=== PATIENT | male | born 1990 | race Caucasian/White ===

== ENCOUNTER 2020-12-14 22:10 | Inpatient (IN) | payer OTHER ==
[2020-12-14 23:00] LABS: Basophils % 0.8 % (0-1.3); Hematocrit 27.7 % (39.6-49.0); Lymphocytes % 9.2 % (15.3-44.8); MPV 9.5 fL (7.6-11.3); RBC Red Blood Cell Count 3.51 M/uL (4.33-5.43)
[2020-12-14 23:20] LABS: ALT/SGPT 47 U/L (12-78); AST/SGOT 43 U/L (15-37); Albumin 2.8 g/dL (3.4-5.0); Alkaline Phosphatase 98 U/L (45-117); BUN Blood Urea Nitrogen 5 mg/dL (7-18); Bicarbonate 40 mmol/L (21-32); Bilirubin Direct 0.2 mg/dL (0-0.2); Bilirubin Total 0.4 mg/dL (0.2-1.0); Glucose Level 147 mg/dL (74-106); Magnesium 2.3 mg/dL (1.8-2.4); NT PRO-BNP 207 pg/mL (<125); Potassium 3.4 mmol/L (3.5-5.1); Protein, Total 7.9 g/dL (6.4-8.2); Sodium Level 140 mmol/L (136-145); Troponin (Emerg Dept Use Only) < 0.02 ng/mL (0.0-0.045)
[2020-12-14] MEDS ORDERED: NA CHLORIDE 0.9% 1,000 ML ONE (23:27)
[2020-12-14] MEDS ORDERED: ONDANSETRON 4 MG/2 ML VIAL ONE (23:27)
[2020-12-14] MEDS ORDERED: HYDROMORPHONE HCL 1 MG/ML INJ ONE (23:27)
[2020-12-14 23:33] LABS: Protime INR 1.24
[2020-12-15 00:14] LABS: Blood Morphology Comment NOT SEEN (NOT SEEN); Platelet Estimate ADEQ
[2020-12-15] MEDS ORDERED: LORazepam 2 MG/ML VIAL ONE (00:23)
--- NOTE | 2020-12-15 02:38 | ER ---
Nurse's Notes [facility] Name: Ravindra Holman Age: 30 yrs Sex: Male : 1990 Arrival Date: 12/14/2020 Time: 22:11 Bed 2 Private MD: Diagnosis: Hemoptysis. Pneumonia. Anemia. Morbid Obesity Presentation: 12/14 22:12 Chief complaint: EMS states: Mother reported she noticed bloody sputum in trace tubing ea since yesterday and has increased in the past 12 hours. Pt vented with own portable vent, sating 100%, felton to BSD. 20 G to RAC established per EMS. Coronavirus screen: At this time, the client does not indicate any symptoms associated with coronavirus-19. Ebola Screen: No symptoms or risks identified at this time. Initial Sepsis Screen: Does the patient meet any 2 criteria? Yes Does the patient have a suspected source of infection? No. Patient's initial sepsis screen is negative. Risk Assessment: Do you want to hurt yourself or someone else? Patient reports no desire to harm self or others. Onset of symptoms was December 14, 2020. 22:12 Method Of Arrival: EMS: [facility] ea 22:12 Acuity: PAM 2 bb Historical: - Allergies: 22:22 Sulfa (Sulfonamide Antibiotics); ea 22:30 No Known Allergies; bb - Home Meds: 22:30 pantoprazole 40 mg oral TbEC 1 tab once daily [Active]; Seroquel Oral [Active]; bb Tradjenta 5 mg oral tab 1 tab once daily [Active]; ipratropium-albuterol 0.5 mg-3 mg(2.5 mg base)/3 mL Inhl nebu every 6 hours [Active]; cetirizine 10 mg oral tab 1 tab once daily [Active]; benzonatate 100 mg oral cap 1 cap 3 times per day [Active]; Singulair 10 mg Oral tab 1 tab once daily [Active]; Melatonin Oral [Active]; doxepin 10 mg Oral cap 1 cap nightly [Active]; spironolactone 25 mg Oral tab 1 tab once daily [Active]; clonazepam 0.5 mg Oral tab 1 tab 3 times per day [Active]; Pulmicort 0.5 mg/2 mL Inhl nbsp 2 mL 2 times per day [Active]; Brovana 15 mcg/2 mL inhalation nebu 2 mL 2 times per day [Active]; amlodipine 5 mg tab 1 tab once daily [Active]; sertraline 100 mg oral tab 1 tab once daily [Active]; ondansetron HCl 4 mg Oral tab 1 tabs every 6 hours [Active]; furosemide 40 mg Oral tab 1 tab 2 times per day [Active]; Lyrica 75 mg Oral [Active]; methocarbamol 750 mg Oral tab 1 tab every 8 hours [Active]; Miralax 0.125 mg Oral twice a day [Active]; - Immunization history:: Adult Immunizations up to date. - Social history:: Smoking status: Patient denies any tobacco usage or history of. Screenin:20 Abuse screen: Denies threats or abuse. Nutritional screening: No deficits noted. ea Tuberculosis screening: No symptoms or risk factors identified. Fall Risk None identified. Assessment: 22:22 General: Appears uncomfortable, Behavior is appropriate for age. Pain: Complains of ea pain in buttocks. Neuro: Level of Consciousness is awake, alert, obeys commands, Oriented to person, place, time. Cardiovascular: Patient's skin is warm and dry. Respiratory: Ventilator assessment: Pt on portable vent from home, vented through trache. Respiratory: pink tinged sputum noted in tubing Ventilator assessment:. Derm: Skin is pink, warm \T\ dry. 12/15 00:24 Respiratory: Pt has a trache and uses a home vent, pt tolerating well. ea 02:20 Reassessment: Patient appears in no apparent distress at this time. Patient and/or ad5 family updated on plan of care and expected duration. Pain level reassessed. Patient is alert, oriented x 3, equal unlabored respirations, skin warm/dry/pink. 03:00 Reassessment: Patient and/or family updated on plan of care and expected duration. Pain ea level reassessed. Patient is alert, oriented x 3, equal unlabored respirations, skin warm/dry/pink. Hospitalist at bedside updating pt and family on plan of care. 03:30 Reassessment: Patient and/or family updated on plan of care and expected duration. Pain ea level reassessed. Patient is alert, oriented x 3, equal unlabored respirations, skin warm/dry/pink. Pt admitted to ED ICU, report given to receiving nurse. Pt left ED via stretcher per nurse and RT. Pt tolerating well. Vital Signs: 12/14 22:12 BP 150 / 68; Pulse 65; Resp 20; Temp 98.2; Pulse Ox 100% ; Weight 153 kg; Height 5 ft. ea 8 in. (172.72 cm); 23:00 BP 144 / 77; Pulse 61; Resp 24 S; Pulse Ox 100% on ETT vent; ea 12/15 00:00 BP 145 / 66; Pulse 55; Resp 20 S; Pulse Ox 100% on ETT vent; ea 00:53 BP 149 / 89; Pulse 89; Resp 20; Pulse Ox 100% on ETT vent; ea 01:30 BP 151 / 77; Pulse 85; Resp 19; Pulse Ox 100% ; ea 02:20 BP 149 / 58; Pulse 74; Resp 18 S; Pulse Ox 100% on ETT vent; ad5 12/14 22:12 Body Mass Index 51.29 (153.00 kg, 172.72 cm) ea ED Course: 12/14 22:11 Patient arrived in ED. bp1 22:12 Daniela Rebolledo, TENZIN is Primary Nurse. ea 22:20 Triage completed. ea 22:20 Arm band placed on right wrist. Patient placed in an exam room, on a stretcher, on ea cardiac exercise specialist, on pulse oximetry. 22:21 Patient has correct armband on for positive identification. Bed in low position. Call ea light in reach. Side rails up X2. 22:45 Deep Chavira MD is Attending Physician. pkl 22:55 Chest Single View XRAY In Process Unspecified. EDMS 23:34 Notified ED physician of a critical lab result(s). D-Dimer of [id number] Dr Chavira notified. bb 12/15 00:05 CT Chest For PE Angio Sent. ea 00:54 CT Chest For PE Angio In Process Unspecified. EDMS 01:43 initiated a transfer with Ashanti Tinoco from [facility]. mw2 02:09 all [facility] campuses denied due to capacity. mw2 02:37 Claude Bravo MD is Hospitalizing Provider. pkl 03:11 No provider procedures requiring assistance completed. Patient admitted, IV remains in ea place. Administered Medications: 12/14 23:21 Drug: Zofran (Ondansetron) 4 mg Route: IVP; Site: right antecubital; ea 12/15 00:18 Follow up: Response: No adverse reaction ea 12/14 23:22 Drug: NS 0.9% 1000 ml Route: IV; Rate: 100 ml/hr; Site: right antecubital; ea 12/15 03:13 Follow up: IV Status: Infusion continued upon admission ea 12/14 23:22 Drug: Dilaudid (HYDROmorphone) 1 mg Route: IVP; Site: right antecubital; ea 12/15 00:18 Follow up: Response: No adverse reaction ea 00:07 Drug: Ativan (LORazepam) 1 mg Route: IVP; Site: right antecubital; ea 03:13 Follow up: Response: No adverse reaction ea Outcome: 02:38 Decision to Hospitalize by Provider. pkl 03:11 Instructed on the need for admit, Demonstrated understanding of instructions. ea 03:33 Admitted to ICU accompanied by nurse, accompanied by tech, room ICU 10 , with oxygen, ea on monitor, with chart, Report called to Receiving nurse in ICU 03:33 Condition: stable 03:34 Patient left the ED. ea Signatures: Dispatcher [employer] EDMS Deep Chavira MD MD pkl Ballard, Brenda RN Daniela Andrews RN RN Terry Rodriguez mw2 Ellen Camp Andrea ad5 Corrections: (The following items were deleted from the chart) 12/14 22:31 22:12 Acuity: PAM 3 ea sharon 12/15 01:58 01:43 initiated a transfer with Ashanti from [facility] mw2 mw2
--- NOTE | 2020-12-15 02:38 | EDPHYS ---
Physician Documentation [facility] Name: Ravindra Holman Age: 30 yrs Sex: Male : 1990 Arrival Date: 12/14/2020 Time: 22:11 Bed 2 Private MD: ED Physician Deep Chavira HPI: 12/14 23:49 This 30 yrs old Male presents to ER via EMS with complaints of bloody sputum. pkl 23:49 The patient has shortness of breath at rest. Onset: The symptoms/episode began/occurred pkl yesterday. Associated signs and symptoms: Pertinent positives: hemoptysis, bloody sputum. H/o Covid 19 in Jun 2020. Was admitted to [facility] for about 1 month and then transferred to [facility] for rehab. Discharged from [facility] 1 week ago. Historical: - Allergies: 22:22 Sulfa (Sulfonamide Antibiotics); ea 22:30 No Known Allergies; bb - Home Meds: 22:30 pantoprazole 40 mg oral TbEC 1 tab once daily [Active]; Seroquel Oral [Active]; bb Tradjenta 5 mg oral tab 1 tab once daily [Active]; ipratropium-albuterol 0.5 mg-3 mg(2.5 mg base)/3 mL Inhl nebu every 6 hours [Active]; cetirizine 10 mg oral tab 1 tab once daily [Active]; benzonatate 100 mg oral cap 1 cap 3 times per day [Active]; Singulair 10 mg Oral tab 1 tab once daily [Active]; Melatonin Oral [Active]; doxepin 10 mg Oral cap 1 cap nightly [Active]; spironolactone 25 mg Oral tab 1 tab once daily [Active]; clonazepam 0.5 mg Oral tab 1 tab 3 times per day [Active]; Pulmicort 0.5 mg/2 mL Inhl nbsp 2 mL 2 times per day [Active]; Brovana 15 mcg/2 mL inhalation nebu 2 mL 2 times per day [Active]; amlodipine 5 mg tab 1 tab once daily [Active]; sertraline 100 mg oral tab 1 tab once daily [Active]; ondansetron HCl 4 mg Oral tab 1 tabs every 6 hours [Active]; furosemide 40 mg Oral tab 1 tab 2 times per day [Active]; Lyrica 75 mg Oral [Active]; methocarbamol 750 mg Oral tab 1 tab every 8 hours [Active]; Miralax 0.125 mg Oral twice a day [Active]; - Immunization history:: Adult Immunizations up to date. - Social history:: Smoking status: Patient denies any tobacco usage or history of. ROS: 23:49 Eyes: Negative for injury, pain, redness, and discharge, ENT: Negative for injury, pkl pain, and discharge, Neck: Negative for injury, pain, and swelling, Cardiovascular: Negative for chest pain, palpitations, and edema. 23:49 Respiratory: Positive for shortness of breath, at rest. 23:49 Abdomen/GI: Negative for abdominal pain, nausea, vomiting, and diarrhea. 23:49 Back: Negative for acute changes. 23:49 : Negative for urinary symptoms. 23:49 MS/extremity: Negative for acute changes. 23:49 Skin: Negative for rash. 23:49 Neuro: Negative for altered mental status, loss of consciousness. Exam: 23:49 Head/Face: Normocephalic, atraumatic. Eyes: Pupils equal round and reactive to light, pkl extra-ocular motions intact. Lids and lashes normal. Conjunctiva and sclera are non-icteric and not injected. Cornea within normal limits. Periorbital areas with no swelling, redness, or edema. ENT: Nares patent. No nasal discharge, no septal abnormalities noted. Tympanic membranes are normal and external auditory canals are clear. Oropharynx with no redness, swelling, or masses, exudates, or evidence of obstruction, uvula midline. Mucous membranes moist. Neck: Trachea midline, no thyromegaly or masses palpated, and no cervical lymphadenopathy. Supple, full range of motion without nuchal rigidity, or vertebral point tenderness. No Meningismus. Chest/axilla: Normal chest wall appearance and motion. Nontender with no deformity. No lesions are appreciated. Cardiovascular: Regular rate and rhythm with a normal S1 and S2. No gallops, murmurs, or rubs. Normal PMI, no JVD. No pulse deficits. 23:49 Respiratory: the patient does not display signs of respiratory distress, Respirations: normal, Breath sounds: rales, that are mild, are scattered. 23:49 Abdomen/GI: Bowel sounds: normal, Palpation: abdomen is soft and non-tender, in all quadrants. 23:49 Back: Exam negative for acute changes. 23:49 : Exam negative for acute changes. 23:49 Musculoskeletal/extremity: Exam is negative for acute changes. 23:49 Skin: Exam negative for rash. 23:49 Neuro: Orientation: is normal, Mentation: is normal, Cranial nerves: grossly normal, Motor: is normal. Vital Signs: 22:12 BP 150 / 68; Pulse 65; Resp 20; Temp 98.2; Pulse Ox 100% ; Weight 153 kg; Height 5 ft. ea 8 in. (172.72 cm); 23:00 BP 144 / 77; Pulse 61; Resp 24 S; Pulse Ox 100% on ETT vent; ea 12/15 00:00 BP 145 / 66; Pulse 55; Resp 20 S; Pulse Ox 100% on ETT vent; ea 00:53 BP 149 / 89; Pulse 89; Resp 20; Pulse Ox 100% on ETT vent; ea 01:30 BP 151 / 77; Pulse 85; Resp 19; Pulse Ox 100% ; ea 02:20 BP 149 / 58; Pulse 74; Resp 18 S; Pulse Ox 100% on ETT vent; ad5 12/14 22:12 Body Mass Index 51.29 (153.00 kg, 172.72 cm) ea MDM: 02:35 Data reviewed: vital signs, nurses notes, lab test result(s), radiologic studies, CT pkl scan, plain films. ED course: Talked to Dominic Marie. Admit to Dr. Claude Bravo. 02:38 Patient medically screened. pkl 12/14 22:38 Order name: BMP; Complete Time: 23:46 ea 12/14 22:38 Order name: CBC with Diff; Complete Time: 01:33 ea 12/14 22:57 Order name: LFT's pkl 12/14 22:57 Order name: Magnesium pkl 12/14 22:57 Order name: PT-INR; Complete Time: 23:46 pkl 12/14 22:57 Order name: Blood Culture Adult (2) pkl 12/14 22:57 Order name: Lactate; Complete Time: 23:46 pkl 12/14 22:57 Order name: D-Dimer; Complete Time: 23:46 pkl 12/14 23:01 Order name: Manual Differential; Complete Time: 01:33 EDMS 12/14 22:36 Order name: Chest Single View XRAY 12/14 22:57 Order name: EKG; Complete Time: 22:58 pkl 12/14 22:57 Order name: Cardiac monitoring; Complete Time: 00:58 pkl 12/14 22:57 Order name: EKG - Nurse/Tech; Complete Time: 00:58 pkl 12/14 22:57 Order name: IV Saline Lock; Complete Time: 23:22 pkl 12/14 23:02 Order name: Liver (Hepatic) Function; Complete Time: 23:46 EDMS 12/14 23:02 Order name: Troponin (Emerg Dept Use Only); Complete Time: 23:46 EDMS 12/14 23:02 Order name: NT PRO-BNP; Complete Time: 23:46 EDMS 12/14 23:02 Order name: Magnesium; Complete Time: 23:46 EDMS 12/14 23:48 Order name: CT Chest For PE Angio [facility] 12/15 00:40 Order name: SARS-COV-2 RT PCR; Complete Time: 01:33 EDMS 12/14 22:57 Order name: Labs collected and sent; Complete Time: 23:22 pkl 12/14 22:57 Order name: O2 Per Protocol; Complete Time: 23:23 pk 12/14 22:57 Order name: O2 Sat Monitoring; Complete Time: 23:23 [facility] 12/15 03:17 Order name: Urine Dipstick-Ancillary (obtain specimen) la1 Administered Medications: 12/14 23:21 Drug: Zofran (Ondansetron) 4 mg Route: IVP; Site: right antecubital; ea 12/15 00:18 Follow up: Response: No adverse reaction 12/14 23:22 Drug: NS 0.9% 1000 ml Route: IV; Rate: 100 ml/hr; Site: right antecubital; ea 12/15 03:13 Follow up: IV Status: Infusion continued upon admission 12/14 23:22 Drug: Dilaudid (HYDROmorphone) 1 mg Route: IVP; Site: right antecubital; ea 12/15 00:18 Follow up: Response: No adverse reaction ea 00:07 Drug: Ativan (LORazepam) 1 mg Route: IVP; Site: right antecubital; ea 03:13 Follow up: Response: No adverse reaction ea Disposition: 12/15/20 02:38 Hospitalization ordered by Claude Bravo for Inpatient Admission. Preliminary diagnosis is Hemoptysis. Pneumonia. Anemia. Morbid Obesity. - Bed requested for Intensive Care Unit. - Status is Inpatient Admission. ea - Condition is Stable. - Problem is new. - Symptoms are unchanged. Signatures: Dispatcher [employer] EDVA Amna Nice RN RN mw Lam, Pin, MD MD pkl Ballard, Brenda, RN RN bb Attema, Lee, INDUSTRIAL ENG-C INDUSTRIAL ENG-Cla1 Daniela Rebolledo RN RN ea Westbrook, MyKena mw2 Corrections: (The following items were deleted from the chart) 12/14 23:02 22:58 Liver (Hepatic) Function ordered. EDVA EDMS 23:02 22:58 Magnesium ordered. EDVA EDMS 23:02 22:58 PROBNP+C.LAB.BRZ ordered. EDVA EDMS 23:02 22:58 TROPONIN (EMERG DEPT USE ONLY)+C.LAB.BRZ ordered. EDVA EDMS 23:21 22:54 Arterial Blood Gas+RC.LAB.BRZ ordered. EDVA EDMS 23:47 23:29 CORONAVIRUS+MR.LAB.BRZ ordered. EDVA EDVA 12/15 02:59 02:38 Hospitalization Ordered by Claude Bravo MD for Inpatient Admission. Preliminary diagnosis is Hemoptysis. Pneumonia. Anemia. Morbid Obesity. Bed requested for Telemetry/MedSurg (Inpatient). Status is Inpatient Admission. Condition is Stable. Problem is new. Symptoms are unchanged. pkl 03:06 02:59 12/15/2020 02:38 Hospitalization Ordered by Claude Bravo MD for Inpatient Admission. Preliminary diagnosis is Hemoptysis. Pneumonia. Anemia. Morbid Obesity. Bed requested for [facility] ER HOLD. Status is Inpatient Admission. Condition is Stable. Problem is new. Symptoms are unchanged. mw 03:20 03:06 12/15/2020 02:38 Hospitalization Ordered by Claude Bravo MD for Inpatient mw2 Admission. Preliminary diagnosis is Hemoptysis. Pneumonia. Anemia. Morbid Obesity. Bed requested for Intensive Care Unit. Status is Inpatient Admission. Condition is Stable. Problem is new. Symptoms are unchanged. mw 03:34 03:20 12/15/2020 02:38 Hospitalization Ordered by Claude Bravo MD for Inpatient ea Admission. Preliminary diagnosis is Hemoptysis. Pneumonia. Anemia. Morbid Obesity. Bed requested for Intensive Care Unit. Status is Inpatient Admission. Condition is Stable. Problem is new. Symptoms are unchanged. mw2
--- NOTE | 2020-12-15 03:31 | P.HP ---
Certification for Inpatient Patient admitted to: Inpatient With expected LOS: >2 Midnights Patient will require the following post-hospital care: None Practitioner: I am a practitioner with admitting privileges, knowledge of patient current condition, hospital course, and medical plan of care. Services: Services provided to patient in accordance with Admission requirements found in Title 42 Section 412.3 of the Code of Federal Regulations <Dominic Marie - Last Filed: 12/15/20 03:22> Patient History Date of Service: 12/15/20 Primary Care Provider: none Reason for admission: Hemoptysis, pneumonia, anemia History of Present Illness: 30-year-old male with morbid obesity, history of diabetes/hypertension and severe COVID infection requiring trach/home vent presents emergency department for hemoptysis. Patient's mother at bedside reports that he was hospitalized on July 03 to [address] [facility] and then transferred to [facility] where he was discharged MondayDecember 08. Mother reports that patient had his trach change approximately 3 weeks ago, they attempted to change the trach with a size 6 reportedly with great difficulty and ended up going down in size to a size 4. Mother reports ever since this is happened patient has had steady slow hemoptysis/blood in his suction/vent tubing. Mother reports that patient is to discharge with hospital bed and home health but this is still not been arranged after multiple attempts and reaching out to [facility] and patient's insurance company. Patient was evaluated in the emergency department, labs significant for hemoglobin 8.6 hematocrit 27.7 MCV 70.9 white blood cell count 10.7 D-dimer 932 potassium 3.4 glucose [address] PE protocol obtained which demonstrates no evidence of large proximal pulmonary embolus with suboptimal bolus limiting evaluation for brain emboli common multi focal atelectasis or consolidations present predominantly within the right lower lobe mild bilateral ground-glass opacities may represent edema versus infiltration, mediastinal and bilateral hilar lymph nodes increase in number and mildly increase in size with largest burden of nodes in the superior mediastinum given patient's age of likely to be reactive in nature. ED provider wishes to admit for further evaluation and management of hemoptysis/bleeding from trach/possible early pneumonia. When I saw the patient in the ER he was awake, alert, oriented x3, patient's mother at bedside to assist with history. Patient in no distress at this time, does not appear septic. Will admit for further evaluation and management. - Past Medical/Surgical History -: Diabetes mellitus type 2 -: Hypertension -: Morbid obesity -: Severe COVID requiring trach/home vent -: Trach Psychosocial/ Personal History: Currently lives at home with his mother - Family History Family History: Reviewed- Non-Contributory - Social History Smoking Status: Never smoker Alcohol use: No CD- Drugs: No Caffeine use: No Place of Residence: Home <Dominic Marie - Last Filed: 12/15/20 03:22> Date of Service: 12/15/20 <Claude Bravo - Last Filed: 12/15/20 09:47> Review of Systems 10-point ROS is otherwise unremarkable Respiratory: Cough, Shortness of Breath, Hemoptysis, As per HPI <Dominic Marie - Last Filed: 12/15/20 03:22> Physical Examination - Physical Exam General: Alert, Oriented x3, Obese HEENT: Atraumatic, Normocephalic, PERRLA, Mucous membr. moist/pink, Other (Trach in place with small amount of bleeding noted) Neck: Supple Respiratory: Diminished (Bilaterally) Cardiovascular: Edema (1+ pitting edema bilaterally to lower extremities) Capillary refill: <2 Seconds Gastrointestinal: Normal bowel sounds Musculoskeletal: No contractures, No erythema, No tenderness Integumentary: Pressure ulcer (unstagable decubitus pressure ulcer, granulation tissue present without any purulent drainage.) Neurological: Normal speech, Normal strength at 5/5 x4 extr, Normal tone, Sensation intact - Studies Laboratory Data (last 24 hrs) 12/14/20 23:16: PT 14.3 H, INR 1.24 12/14/20 22:57: Magnesium Cancelled, Total Bilirubin Cancelled, AST Cancelled, ALT Cancelled, Alkaline Phosphatase Cancelled 12/14/20 22:47: WBC 10.70, Hgb 8.6 L, Hct 27.7 L, Plt Count 369 12/14/20 22:47: Sodium 140, Potassium 3.4 L, BUN 5 L, Creatinine 0.57, Glucose 147 H, Magnesium 2.3, Total Bilirubin 0.4, AST 43 H, ALT 47, Alkaline Phosphatase 98 <Dominic Marie - Last Filed: 12/15/20 03:22> - Studies Laboratory Data (last 24 hrs) 12/14/20 23:16: PT 14.3 H, INR 1.24 12/14/20 22:57: Magnesium Cancelled, Total Bilirubin Cancelled, AST Cancelled, ALT Cancelled, Alkaline Phosphatase Cancelled 12/14/20 22:47: WBC 10.70, Hgb 8.6 L, Hct 27.7 L, Plt Count 369 12/14/20 22:47: Sodium 140, Potassium 3.4 L, BUN 5 L, Creatinine 0.57, Glucose 147 H, Magnesium 2.3, Total Bilirubin 0.4, AST 43 H, ALT 47, Alkaline Phosphatase 98 <Claude Bravo - Last Filed: 12/15/20 09:47> Assessment and Plan - Plan Assessment Microcytic anemia secondary to hemoptysis/bleeding from tracheostomy site complicated with possible right lower lobe pneumonia and chronic respiratory failure requiring tracheostomy/home ventilator S/P severe COVID pneumonia Sacral Decubitus ulceration Diabetes mellitus type 2 Hypertension Morbid obesity, debility, weakness Plan Microcytic anemia secondary to hemoptysis/bleeding from tracheostomy site complicated with possible right lower lobe pneumonia and chronic respiratory failure requiring tracheostomy/home ventilator S/P severe COVID pneumonia: Will consult ENT, pulmonology. Blood is/sputum cultures obtained, continue with Rocephin/Zithromax, will obtain pro calcitonin/CRP level. White blood cell count borderline 10.7. Patient with steady slow blood present in ventilator tubing/suction tubing over the course of the last 3 weeks after trach was manipulated and multiple attempts were made to exchange trach which ended up requiring a smaller size, mother reports bleeding ever since this incident. Hemoglobin 8.6, will monitor daily labs. Transfuse for hemoglobin less than 8 with active bleeding. Patient hemodynamically stable, does not appear septic at this time. Will continue with SCDs for DVT prophylaxis as patient is with active bleeding. Appreciate further input from pulmonology, ENT. Sacral Decubitus ulceration: Wound appears to be healing well, will place wound healing consult for additional assistance in management. Diabetes mellitus type 2: A.c. HS Accu-Cheks insulin therapy. ADA diet. Hypertension: Obtain and continue home medications. Morbid obesity, debility, weakness: Patient morbidly obese, very weak. Patient was supposed to be discharged with home health/hospital bed etc from [facility] in [place], patient was discharged on December 08 and patient has still not received these accommodation/resources. Will have social sciences department chair get with patient's insurance/rehab facility to determine what the hold up his and help him obtain additional assistance. Discharge Plan: Home Plan to discharge in: 48 Hours - Advance Directives Does patient have a Living Will: No Does patient have a Durable POA for Healthcare: No - Code Status/Comfort Care Code Status Assessed: Yes (Full code) Critical Care: No Time Spent Managing Pts Care (In Minutes): 55 <Dominic Marie - Last Filed: 12/15/20 03:22> - Plan Patient seen / evaluated this morning. No significant change since admission a few hours prior. Mother and patient report ongoing blood clots and difficulty breathing due to obstruction at trach site. Feel these blood clots are becoming larger in size. No overall change to amount of bleeding. Otherwise report no significant change in health. Deny h/o anemia prior to COVID infection. Pulm consulted given ongoing bleeding / hemoptysis / possible RLL pneumonia ENT consulted for further evaluation of tracheostomy site / bleeding <Claude Bravo - Last Filed: 12/15/20 09:47>
[2020-12-15] MEDS ORDERED: ACETAMINOPHEN 500 MG TAB PO PRN (05:15)
[2020-12-15] MEDS ORDERED: ONDANSETRON 4 MG/2 ML VIAL IV PRN (05:15)
[2020-12-15] MEDS ORDERED: HYDROCODONE/APAP 10/325 TAB PO PRN (05:25)
[2020-12-15] MEDS ORDERED: MORPHINE 2 MG/ML SYR IV PRN (05:25)
[2020-12-15] MEDS: HYDROMORPHONE HCL 0.5 MG/0.5 ML INJ IV PRN ×4 (05:49→22:49)
[2020-12-15] MEDS ORDERED: HYDROMORPHONE HCL 0.5 MG/0.5 ML INJ ONE ×4 (06:03→23:08)
[2020-12-15 06:20] LABS: Absolute Lymphocytes (CBC) 1.2 K/uL (0.7-4.9); Basophils % 1.2 % (0-1.3); Lymphocytes % 12.1 % (15.3-44.8); MPV 9.7 fL (7.6-11.3); RBC Red Blood Cell Count 3.44 M/uL (4.33-5.43)
[2020-12-15 06:44] LABS: ALT/SGPT 39 U/L (12-78); AST/SGOT 35 U/L (15-37); Albumin 2.5 g/dL (3.4-5.0); Alkaline Phosphatase 84 U/L (45-117); BUN Blood Urea Nitrogen 5 mg/dL (7-18); Bicarbonate 39 mmol/L (21-32); Bilirubin Total 0.4 mg/dL (0.2-1.0); Ferritin 130.4 ng/mL (26-388); Glucose Level 103 mg/dL (74-106); Magnesium 2.1 mg/dL (1.8-2.4); Potassium 3.2 mmol/L (3.5-5.1); Protein, Total 6.8 g/dL (6.4-8.2); Sodium Level 140 mmol/L (136-145); Transferrin 192 mg/dL (200-360)
--- NOTE | 2020-12-15 07:20 | RAD REPORT ---
EXAM DESCRIPTION: Manfred Single View12/14/2020 10:55 pm CLINICAL HISTORY: Congestion COMPARISON: none FINDINGS: Mild right lower lobe opacity. Left lung appears clear infiltrate. Heart is mildly enlarged. Tracheostomy tube in place IMPRESSION: Mild right lower lobe opacity probably pneumonia. This should be followed until it is cl ear to help exclude post obstructive process/ underlying mass
[2020-12-15] MEDS: INSULIN -REGULAR HUMAN 50 UNIT/0.5 ML ML SQ SCH ×4 (07:30→21:00)
[2020-12-15] MEDS ORDERED: POTASSIUM CL SA 10 MEQ TAB PO ONE ×2 (07:31→09:29)
--- NOTE | 2020-12-15 07:49 | EKG ---
Test Date: 2020-12-14 Test Time: 23:56:15 Retail Salesman: ALBINA MEASUREMENT RESULTS: Intervals: Rate: 60 MD: 152 QRSD: 98 QT: 434 QTc: 434 [place]: P: 28 MD: 152 QRS: 40 T: 51 INTERPRETIVE STATEMENTS: Normal sinus rhythm Normal ECG No previous ECG available for comparison Electronically Signed On 12-15-20 07:48:53 CDT by Flex Ochoa
[2020-12-15 08:04] VITALS: BMI 51.2
--- NOTE | 2020-12-15 08:37 | P.CNS ---
Date of Consult: 12/15/20 Reason for Consult: Hemoptysis patient on a ventilator Primary Care Provider: none Chief Complaint: Hemoptysis History of Present Illness: Patient is 22 years of age with metabolic syndrome morbid obesity the deluna virus section had a trach done currently on a home ventilator patient's trach was downsized about 3 weeks ago since then has been having problems has had recurrent episodes of hemoptysis right now in the morning he appears to be in significant distress after suction no evidence of pulmonary embolus Allergies Sulfa (Sulfonamide Antibiotics) Allergy (Severe, Verified 12/15/20 05:15) Hives/Rash - Past Medical/Surgical History -: Diabetes mellitus type 2 -: Hypertension -: Morbid obesity -: Severe COVID requiring trach/home vent -: Trach Psychosocial/ Personal History: Currently lives at home with his mother - Social History Alcohol use: No CD- Drugs: No Caffeine use: No Place of Residence: Home Review of Systems is unable to be obtained Physical Examination Temp Pulse Resp BP Pulse Ox 97.1 F 93 H 17 90/71 95 12/15/20 07:00 12/15/20 07:00 12/15/20 07:00 12/15/20 07:00 12/15/20 07:00 General: Moderate distress Respiratory: Clear to auscultation bilaterally Cardiovascular: No edema, Normal S1 S2 Laboratory Data (last 24 hrs) 12/14/20 23:16: PT 14.3 H, INR 1.24 12/14/20 22:57: Magnesium Cancelled, Total Bilirubin Cancelled, AST Cancelled, ALT Cancelled, Alkaline Phosphatase Cancelled 12/14/20 22:47: WBC 10.70, Hgb 8.6 L, Hct 27.7 L, Plt Count 369 12/14/20 22:47: Sodium 140, Potassium 3.4 L, BUN 5 L, Creatinine 0.57, Glucose 147 H, Magnesium 2.3, Total Bilirubin 0.4, AST 43 H, ALT 47, Alkaline Phosphatase 98 - Problems (1) Hemoptysis Current Visit: Yes Status: Acute Plan: Patient is 30 years of age history of deluna virus pneumonia diagnosed in June has a home vent admitted with hemoptysis recent trach was downsized to size 4 he has been having problems since then this morning is in significant respiratory distress after suctioning by his mother is present at the bed side CT scan shows right lower lobe consolidation which I suspect is chronic there is no evidence of active sepsis vital signs stable oxygenation satisfactory no further episodes of hemoptysis patient has a mild microcytic anemia possible iron deficiency check iron levels chemistries reviewed mild hyponatremia recommend ENT evaluation trach collar ferritin level is normal TIBC is low probably has anemia of chronic disease patient is on multiple medications that niece to be renewed Dc Lasix
[2020-12-15] MEDS ORDERED: CEFTRIAXONE 1 GM/NS 50 ML 1 GM/50 ML BAG IV SCH (09:00)
[2020-12-15] MEDS ORDERED: AZITHROMYCIN IV 500 MG in NA CHLORIDE 0.9% 250 ML IVPB SCH (09:00)
[2020-12-15] MEDS ORDERED: CEFTRIAXONE/SWI 1gm 1 GM/10 ML SYR IV SCH (09:00)
[2020-12-15] MEDS ORDERED: CEFTRIAXONE/SWI 1gm 0 GM/0 ML SYR ONE (09:30)
[2020-12-15] MEDS ORDERED: HYDROCODONE/APAP 10/325 TAB ONE (10:27)
--- NOTE | 2020-12-15 10:53 | RAD REPORT ---
EXAM DESCRIPTION: CT - Chest For Pe Angio - 12/15/2020 6:21 am COMPARISON: None. CLINICAL HISTORY: Bloody sputum TECHNIQUE: CT images through the chest with IV contrast using the pulmonary embolus protocol. Multip lanar reformats. Automated exposure control was utilized on this examination as a dose lowering techn ique. FINDINGS: Pulmonary arteries and vascular: Suboptimal bolus. No filling defects. Heart and mediastinum: Heart size is normal. Mediastinal and bilateral hilar lymph nodes are increase d in number and measure up to 1.5 cm short axis (series 401 image 20). Thyroid gland: Visualized portions are normal. Lungs: Right perihilar and bilateral lower lobe atelectasis or consolidation are present. Mild bilate ral perihilar groundglass opacities are noted. Airways: No filling defects. A tracheostomy tube is in place. No bronchiectasis. Pleura: No pneumothorax. Small right pleural effusion. Subphrenic structures: Within normal limits. Musculoskeletal and soft tissues: Osseous demineralization is noted in the proximal humeri. IMPRESSION: 1. No evidence of large proximal pulmonary embolus. Suboptimal bolus limits evaluation f or branch emboli. 2. Multifocal atelectasis or consolidations are present, predominantly within the right lower lobe. M ild bilateral groundglass opacities may represent edema or infection. 3. Mediastinal and bilateral hilar lymph nodes are increased in number and mildly increased in size. The largest burden of nodes is in the superior right mediastinum. These are favored to be reactive gi marlin patient age, however a small right perihilar or hilar neoplasm is not excluded. Electronically signed by: Doyle Palacios MD 12/15/2020 1:11 AM CDT Due to temporary technical issues with the PACS/Fluency reporting system, reports are being signed by the in house radiologist without review as a courtesy to ensure prompt reporting. The interpreting r adiologist is fully responsible for the content of the report.
[2020-12-15] MEDS: BENZONATATE 100 MG CAP PO SCH ×2 (13:42→20:22)
[2020-12-15] MEDS: clonazePAM 0.5 MG TAB PO SCH ×2 (13:42→20:22)
--- NOTE | 2020-12-15 15:03 | CON ---
Date of Consultation: 12/15/2020 Reason For Consult: Hemoptysis - suspected origin - tracheostomy site. Primary Care Provider: None. Chief Complaint: Hemoptysis. 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 The patient and mother report that approximately 3 weeks ago the patient had tracheostomy change from #6 cuff tube to the same size and it was unsuccessful after 4 attempts at in serting the trach tube. The patient also complained that it was very bloody during the procedure. T hus the respiratory therapist instead placed a smaller cuff tube to a Shiley trach size 4 DCT. The c uff was inflated and the patient was able to breath adequately through the tracheostomy tube but he c ontinued to cough blood clots through the tube. He states that while the initial gonzález bleeding epis ode has improved, he still coughing up blood clots through the tracheostomy tube opening. He reports that breathing is adequate through the smaller tube and O2 saturation have been in the range of 95% to 98% on trach collar. Currently he denies neck pain, swelling, or significant shortness of breath. No other ENT complaints today. Past Medical History: Type 2 diabetes mellitus, morbid obesity, hypertension, severe COVID requiring tracheostomy tube and home ventilation. Social History: Denies alcohol, drug use or tobacco. Review of Systems: Ears: No complaints today. Denies otalgia, otorrhea, hearing loss. Nose: Denies nasal obstruction or rhinorrhea. Throat: Denies sore throat or dry mouth. Neck: Positive for hemoptysis through the tracheostomy tube opening but denies neck pain, swelling, or erythema where the tracheostomy has been placed. Physical Examination: Vital Signs: Currently stable. He is afebrile. Pulse is approximately 89%. Respiratory rate is 18. Blood pressure is 105/80 and pulse oxymetry is 98% on trach collar. General: Positive for mild anxiety but he is in no acute distress. He is sitting at the bed side an d he just finished his breakfast meal. He is actively coughing of sputum but no gonzález blood is seen. Eyes: PERRLA/EOMI. Ears: Bilateral external auditory canals patent. Tympanic membrane intact with no evidence of middl e ear effusion and no evidence of otorrhea. Nose: Bilateral moist nasal mucosa with normal turbinate size and no evidence of deviated septum. Oral cavity/oropharyngeal: Reveals midline uvula with type 2/3 Clemons palate and oral mucosa is mo ist with no erythema or edema visualized. Neck: Redundant soft tissue of the neck. He has an intact Shiley #[address]. No evidence of gonzález bleeding or blood clot visualized either in the tube or surrounding the flanges at the neck stomal opening. After obtaining verbal consent, a flexible fiberoptic laryngoscope was introduced through the tracheo stomy tube and advanced to the level of the yadira. With the exception of a small amount of old bloo d located on the posterior tracheal wall, there was no evidence of gonzález bleeding or blood clots. Th e patient had patent airway down to the level of the yadira and no evidence of trachitis or tracheoma lacia. The scope was advanced where the tracheostomy tube and he tolerated the procedure well. Hemo globin 12/14/2020 at 22:47 was 8.6, and according to the attending physician, this has dropped to faby roximately 8.3 or 8.4 this morning 12/15/2020. Hematocrit 27.7, MCV at 70.9, D-dimer 932. CTP protocol was negative for obvious pulmonary embolus a nd was unable to be evaluated for brain emboli. There was also evidence of right lower lobe opacity versus infiltration and bilateral hilar lymphadenopathy. Impression: 1.Hemoptysis. 2.Microcytic anemia. 3.Morbid obesity. Plan: Overall it appears that the bleeding has improved but it has not resolved. I would like to ob tain another hemoglobin and hematocrit but it appears that we will need to take him to the OR to asse ss the area at the tracheal stoma and possibly cauterized any areas of bleeding as necessary. I will also attempt to change him back #6 tracheostomy tube as he would breath much better through the larg er tube. This will be further evaluated in the operating room. Thank you Dr. Bravo for this most interesting patient. Further recommendations to follow. CRISTY/ORIANA Voice ID: [id number] Report ID: [id number]
[2020-12-15] MEDS ORDERED: LIDOCAINE 1% W/EPI 1:100,000 MDV 20 ML VIAL ONE (16:03)
[2020-12-15] MEDS ORDERED: EPINEPHRINE/PF 1 MG/ML AMP ONE (16:07)
[2020-12-15] MEDS ORDERED: propofoL 200 MG/20 ML VIAL IV ONE (16:56)
[2020-12-15] MEDS ORDERED: NA CHLORIDE 0.9% 1,000 ML ONE (16:57)
[2020-12-15] MEDS ORDERED: ONDANSETRON 4 MG/2 ML VIAL ONE (18:18)
[2020-12-15] MEDS ORDERED: BENZONATATE 100 MG CAP PO ONE (19:54)
[2020-12-15] MEDS ORDERED: ARFORMOTEROL TARTRATE 15 MCG/2 ML VIAL.NEB ONE (19:54)
[2020-12-15] MEDS ORDERED: PREGABALIN 75 MG CAP PO ONE (19:55)
[2020-12-15] MEDS ORDERED: clonazePAM 0.5 MG TAB ONE (20:05)
[2020-12-15] MEDS: BUDESONIDE 0.5 MG/2 ML NEB NEB SCH (20:15)
[2020-12-15] MEDS: ARFORMOTEROL TARTRATE 15 MCG/2 ML VIAL.NEB NEB SCH (20:15)
[2020-12-15] MEDS: PRAMIPEXOLE 0.25 MG TAB PO SCH (20:22)
[2020-12-15] MEDS: MONTELUKAST 10 MG TAB PO SCH (20:22)
[2020-12-15] MEDS: DOXEPIN HCL 10 MG CAP PO SCH (20:22)
[2020-12-15] MEDS: SERTRALINE HCL 100 MG TAB PO SCH ×2 (20:22→21:00)
[2020-12-15] MEDS: PREGABALIN 75 MG CAP PO SCH (20:23)
[2020-12-15] MEDS ORDERED: MELATONIN 3 MG TABLET PO SCH (21:00)
[2020-12-16] MEDS: HYDROMORPHONE HCL 0.5 MG/0.5 ML INJ IV PRN ×4 (04:23→20:48)
[2020-12-16] MEDS ORDERED: HYDROMORPHONE HCL 0.5 MG/0.5 ML INJ ONE ×4 (04:43→21:07)
--- NOTE | 2020-12-16 05:35 | OP ---
Date of Procedure: 12/15/2020 Surgeon: KENNEDY KULKARNI Preoperative Diagnoses: 1. Hemoptysis. 2. Respiratory failure resulting in tracheostomy tube placement. Postoperative Diagnoses: 1. Tracheal stomal stenosis. 2. Respiratory failure resulting in tracheostomy tube placement. Procedure: 1. Tracheostomy change from #4 DCT Shiley tracheostomy tube to an C #4 Shiley tracheostomy tube. 2. Tracheoscopy with flexible laryngoscope. Anesthesia: General sedation was given with gas and propofol IV. Estimated Blood Loss: Scant, less than 5 mL. Specimens: None. Findings: Significant tracheal stomal stenosis extending distally and evidence of excoriation of the anterior wall most likely due to the tracheostomy change with minimal bleeding. Mild granulation tissue throughout, but no obstruction. Most importantly, no evidence of vessel exposure or gonzález bright red blood or blood clots. Complications: None. Disposition: Stable. The patient tolerated the procedure well. Indication For Procedure: Patient is a morbidly obese 30-year-old male who presented to our emergency room and subsequently admitted for hemoptysis with suspicious origin centering around the tracheostomy site. Patient's hemoglobin dropped almost half a gram within 12 hours, thus these were indications to bring the patient to the operative suite to see if we could identify the area of bleeding. Patient and mom understood and all questions were answered and risks versus benefits and complications explained in detail and the consent form was signed, which was placed on the chart. Description Of Procedure: Patient was transferred from the ER ICU to operating room and it was decided that we would have the patient stay on his hospital bed as we did not have an OR bed that would accommodate his large body habitus. The patient was seated right lateral decubitus because patient becomes bradycardic if placed supine or on his left side. He was given mechanical ventilation through the tracheostomy tube to help with breathing and he was given a little sedation via Anesthesia; however, we did not give any paralytic drugs whatsoever. Our goal was to see if we could possibly try and place a #6 proximal extended tube into the stoma as we felt like he could possibly breathe better through that tube as opposed to #4 that he has currently in place. So, he was given a very small amount of IV propofol, and as we were about to take the current tracheostomy tube out, he started having desaturations into the 80s. Thus, we decided to wake him back up. As he was awakening, he had significant mucus production and this had to be suctioned with a flexible suction tube and it was successful and his saturations increased to the high 80s and low 90s. At this point, it was decided that we would take the tracheostomy tube out after he was given some gas, so we waited for Anesthesia's directions and then we proceeded to take out the existing tracheostomy tube after deflating the cuff. I then was able to quickly slide a flexible laryngoscope into the tracheal stoma and I noticed that there was significant scar tissue involving the entire stoma down to the trachea. There was blood-tinged mucus, but no evidence of any gonzález bleeding and definitely no evidence of vascular exposure or pulsation to suggest tracheoinnominate fistula. It was quite difficult to get the tracheostomy tube out and I felt very certain that I would not be able to put a larger tube in, thus we lubricated a #4 Shiley cuff tube and inserted into the tracheal stomal opening and inflated the cuff and then secured it to the neck. He had a small amount of oozing of blood over the anterior wall and so I placed Surgicel packing in this area. He was then hooked up to the oxygen circuit and saturations increased to roughly 95% to 96%. He was then transferred back to the ER ICU in stable condition. He tolerated the procedure well. He will continue to be monitored by ENT. CRISTY/ORIANA Voice ID: [id number] Report ID: [id number] SAAD
[2020-12-16 05:49] LABS: Absolute Lymphocytes (CBC) 1.3 K/uL (0.7-4.9); Basophils % 0.7 % (0-1.3); Hematocrit 27.7 % (39.6-49.0); Lymphocytes % 16.9 % (15.3-44.8); MPV 9.5 fL (7.6-11.3); RBC Red Blood Cell Count 3.49 M/uL (4.33-5.43)
[2020-12-16 05:53] LABS: ALT/SGPT 41 U/L (12-78); AST/SGOT 38 U/L (15-37); Albumin 2.7 g/dL (3.4-5.0); Alkaline Phosphatase 85 U/L (45-117); BUN Blood Urea Nitrogen 5 mg/dL (7-18); Bicarbonate 37 mmol/L (21-32); Bilirubin Total 0.4 mg/dL (0.2-1.0); Glucose Level 90 mg/dL (74-106); Magnesium 2.4 mg/dL (1.8-2.4); Potassium 3.7 mmol/L (3.5-5.1); Protein, Total 7.1 g/dL (6.4-8.2); Sodium Level 139 mmol/L (136-145)
[2020-12-16] MEDS: INSULIN -REGULAR HUMAN 50 UNIT/0.5 ML ML SQ SCH ×4 (06:54→21:00)
[2020-12-16] MEDS ORDERED: PREGABALIN 75 MG CAP PO ONE ×3 (08:05→21:34)
[2020-12-16] MEDS: PANTOPRAZOLE 40MG TABLET PO SCH (08:05)
[2020-12-16] MEDS ORDERED: BENZONATATE 100 MG CAP PO ONE ×3 (08:05→21:34)
[2020-12-16] MEDS: BENZONATATE 100 MG CAP PO SCH ×3 (08:05→21:00)
[2020-12-16] MEDS ORDERED: clonazePAM 0.5 MG TAB ONE ×3 (08:05→21:35)
[2020-12-16] MEDS ORDERED: PANTOPRAZOLE 40MG TABLET PO ONE (08:05)
[2020-12-16] MEDS: MEDIHONEY 44 ML TOPICAL TUBE TOP SCH (08:05)
[2020-12-16] MEDS: NYSTATIN PWDR 100000 UNIT/GM TOP SCH (08:06)
[2020-12-16] MEDS ORDERED: POTASSIUM CL SA 10 MEQ TAB PO ONE ×2 (08:06→09:00)
[2020-12-16] MEDS: ARFORMOTEROL TARTRATE 15 MCG/2 ML VIAL.NEB NEB SCH ×2 (08:07→20:00)
[2020-12-16] MEDS: IPRATROPIUM BROM 0.5MG/2.5ML NEB PRN ×2 (08:07→13:52)
[2020-12-16] MEDS: BUDESONIDE 0.5 MG/2 ML NEB NEB SCH ×2 (08:07→20:00)
[2020-12-16] MEDS: clonazePAM 0.5 MG TAB PO SCH ×3 (08:08→21:45)
[2020-12-16] MEDS: SPIRONOLACTONE 25 MG TABLET PO SCH (08:11)
[2020-12-16] MEDS: PREGABALIN 75 MG CAP PO SCH ×3 (08:12→21:00)
[2020-12-16] MEDS ORDERED: IPRATROPIUM BROM 0.5MG/2.5ML ONE ×2 (08:13→14:11)
[2020-12-16] MEDS: PRAMIPEXOLE 0.25 MG TAB PO SCH ×2 (08:23→21:00)
[2020-12-16] MEDS ORDERED: SPIRONOLACTONE 25 MG TABLET ONE (08:32)
[2020-12-16] MEDS ORDERED: LORazepam 2 MG/ML VIAL IV ONE (09:09)
[2020-12-16] MEDS ORDERED: LORazepam 2 MG/ML VIAL ONE (09:37)
--- NOTE | 2020-12-16 12:00 | P.PN ---
Subjective Date of Service: 12/16/20 Primary Care Provider: none Chief Complaint: Status post replacement of tracheostomy Patient is still continues to remain anxious tolerating a trach collar no hemoptysis Review of Systems is unable to be obtained Physical Examination - Vital Signs Temperature: 98.4 F Blood Pressure: 144/63 Pulse: 70 Respirations: 20 Pulse Ox (%): 96 - Physical Exam General: Moderate distress Respiratory: Clear to auscultation bilaterally, Diminished Assessment & Plan - Problems (Diagnosis) (1) Hemoptysis Current Visit: Yes Status: Acute Plan: Patient has tracheal stenosis in by ENT trach replaced tolerating trach collar his bicarb is probably elevated due to diuretics ovoid Lasix continue with low- dose spironolactone if needed stable to be discharged home the probably can be weaned off from the ventilator patient also has a urinary catheter in a decubitus ulcer hospitalist need to follow with his primary care in arrange for possible home health
--- NOTE | 2020-12-16 12:45 | P.PN ---
Subjective Date of Service: 12/16/20 Primary Care Provider: none Chief Complaint: Status post replacement of tracheostomy Subjective: Improving (s/p scope with ENT yesterday, surgicel placed. no significant amount of bleeding visualized. patient didn't sleep well overnight, +anxiety, tolerating trach collar, nursing staff report some anxiety when off vent, and feels he needs it despite SpO2 > 93%) Review of Systems 10-point ROS is otherwise unremarkable Physical Examination - Vital Signs Temperature: 98.4 F Blood Pressure: 144/63 Pulse: 70 Respirations: 20 Pulse Ox (%): 96 Assessment & Plan Physician Review Additional Text: Physical Exam General: AOx3, anxious, obese HEENT: MMM, trach in place, no bleeding noted Respiratory: Diminished bilaterally Cardiovascular: trace b/l edema, regular rate/rhythm Gastrointestinal: soft, nontender, nondistended Integumentary: Pressure ulcer unstageable, wound dressing in place Neurological: Normal speech, normal affect Problem List Microcytic anemia secondary to hemoptysis/bleeding from tracheostomy site Chronic respiratory failure requiring tracheostomy/home ventilator S/P severe COVID pneumonia Sacral Decubitus ulceration, stage 4 Diabetes mellitus type 2, non-insulin dependent Hypertension Anxiety Neuropathy Morbid obesity, debility, weakness chronic felton anemia - secondary to tracheostomy site bleeding, possible of chronic disease with recent COVID infection / prolonged hospitalization/LTAC ENT consulted, pt taken to OR on 12/15, with some minimal/mild bleed, s/p surgicel. unable to upsize tracheostomy no blood clots / bleeding overnight. hgb stable ENT to possibly repeat scope at bedside today Pulm consulted given h/o COVID, and questionable pneumonia - does not feel patient has pneumonia, no indication for antibiotics at this time wound care consulted for sacral decubitus ulcer - report ~3.5 cm deep, recommend santyl, no wound vac at this time A.c. HS Accu-Cheks insulin therapy. ADA diet confirm home meds, anxiety / neuropathy medications restarted Patient morbidly obese, very weak. Patient was supposed to be discharged with home health/hospital bed etc from [facility] in [place], patient was discharged on December 08 and patient has still not received these accommodation/resources. mother reports felton catheter in place for months (exchanged multiple times), she states it's in place to minimize risk of urinating on sacral decubitus ulcer, pt denies h/o urinary retention/incontinence. denies prior voiding trial. mother unsure of plan of felton catheter - continue for now, will need urology follow up social media campaign manager consulted for assistance VTE: SCDs Code: full Dispo: anticipate dc home in 24-48hrs, improving, needs home health set up, unclear who is following the patient as outpatient Time Spent Managing Pts Care (In Minutes): 40
--- NOTE | 2020-12-16 13:41 | P.PN ---
Date of Service: 12/16/20 ENT Progress Note Patient seen and examined. He reports frequent throat clearing, dyspnea, and coughing today but denies bleeding from trach site. Tolerating mechanical soft diet and receives dilaudid for pain control and Ativan prn anxiety. No other complaints today. Ears: Bilateral EACs intact and patent; TMs intact with no effusion Nose: Bilateral patent nares; no mucosal edema/erythema Throat: Clemons Type 3/4 palate; absent tonsils; uvula midline Neck: #4 HUMAN SERVICE TECHNICIAN intact on trach collar O2; flex scope was introduced through tube down to yadira; no evidence of gonzález bleeding or blood clots; inner cannula cleaned and replaced; tolerating speaking valve without any significant desaturations. Imp: 1. Hemoptysis-- resolved 2. Respiratory failure resulting in Trach-- stable 3. Morbid obesity Plan: 1. Continue to wean O2; when able, could potentially cap trach and see how he tolerates; o/w continue trach for now. 2. Nursing to clean inner cannula TID. 3. May advance diet if tolerates. 4. Will continue to follow patient. Thank you Dr. Bravo for this most interesting patient.
[2020-12-16] MEDS: ALBUTEROL 2.5 MG/3 ML NEB SOL NEB PRN (13:52)
[2020-12-16] MEDS ORDERED: ALBUTEROL 2.5 MG/3 ML NEB SOL ONE (14:11)
[2020-12-16 14:27] LABS: Arterial Blood Carboxyhemoglob 1.8 % (0-1.5); Blood Gas Oxyhemoglobin 88.3 % (94-97); Blood O2 Saturation 90.8 % (92-98.5)
[2020-12-16] MEDS: MONTELUKAST 10 MG TAB PO SCH (21:00)
[2020-12-16] MEDS: ENSURE HIGH PROTEIN 237 ML CAN PO SCH (21:00)
[2020-12-16] MEDS: DOXEPIN HCL 10 MG CAP PO SCH (21:00)
[2020-12-16] MEDS: QUETIAPINE 25 MG TAB PO SCH (21:00)
[2020-12-16] MEDS: JUVEN PACKET PO SCH (21:00)
[2020-12-16] MEDS: SERTRALINE HCL 100 MG TAB PO SCH (21:45)
[2020-12-17] MEDS: HYDROMORPHONE HCL 0.5 MG/0.5 ML INJ IV PRN ×2 (01:30→05:00)
[2020-12-17] MEDS ORDERED: HYDROMORPHONE HCL 0.5 MG/0.5 ML INJ ONE ×2 (01:54→05:15)
[2020-12-17 05:10] LABS: Absolute Lymphocytes (CBC) 1.5 K/uL (0.7-4.9); Basophils % 0.7 % (0-1.3); Hematocrit 27.6 % (39.6-49.0); MPV 9.7 fL (7.6-11.3); RBC Red Blood Cell Count 3.47 M/uL (4.33-5.43)
[2020-12-17 05:24] LABS: ALT/SGPT 36 U/L (12-78); AST/SGOT 29 U/L (15-37); Albumin 2.7 g/dL (3.4-5.0); Alkaline Phosphatase 81 U/L (45-117); BUN Blood Urea Nitrogen 5 mg/dL (7-18); Bicarbonate 34 mmol/L (21-32); Bilirubin Total 0.4 mg/dL (0.2-1.0); Glucose Level 99 mg/dL (74-106); Magnesium 2.6 mg/dL (1.8-2.4); Protein, Total 7.3 g/dL (6.4-8.2); Sodium Level 142 mmol/L (136-145)
[2020-12-17] MEDS: INSULIN -REGULAR HUMAN 50 UNIT/0.5 ML ML SQ SCH ×4 (07:30→21:00)
[2020-12-17] MEDS: BUDESONIDE 0.5 MG/2 ML NEB NEB SCH ×2 (08:10→19:50)
[2020-12-17] MEDS: ALBUTEROL 2.5 MG/3 ML NEB SOL NEB PRN (08:10)
[2020-12-17] MEDS: ARFORMOTEROL TARTRATE 15 MCG/2 ML VIAL.NEB NEB SCH ×2 (08:10→19:50)
[2020-12-17] MEDS: IPRATROPIUM BROM 0.5MG/2.5ML NEB PRN (08:10)
[2020-12-17] MEDS ORDERED: IPRATROPIUM BROM 0.5MG/2.5ML ONE (08:19)
[2020-12-17] MEDS ORDERED: ALBUTEROL 2.5 MG/3 ML NEB SOL ONE (08:19)
[2020-12-17 08:26] LABS: Blood Morphology Comment NOTED (NOT SEEN); Platelet Estimate ADEQ
[2020-12-17 08:27] LABS: Anisocytosis 1+
[2020-12-17] MEDS: ENSURE HIGH PROTEIN 237 ML CAN PO SCH ×2 (09:00→21:14)
[2020-12-17] MEDS: NYSTATIN PWDR 100000 UNIT/GM TOP SCH (09:00)
[2020-12-17] MEDS: JUVEN PACKET PO SCH ×2 (09:00→21:00)
[2020-12-17] MEDS: PREGABALIN 75 MG CAP PO SCH ×3 (09:00→21:11)
[2020-12-17] MEDS: BENZONATATE 100 MG CAP PO SCH ×3 (09:49→21:00)
[2020-12-17] MEDS: SPIRONOLACTONE 25 MG TABLET PO SCH (09:49)
[2020-12-17] MEDS: PANTOPRAZOLE 40MG TABLET PO SCH (09:50)
[2020-12-17] MEDS: MEDIHONEY 44 ML TOPICAL TUBE TOP SCH (09:50)
[2020-12-17] MEDS: clonazePAM 0.5 MG TAB PO SCH ×3 (09:50→21:16)
[2020-12-17] MEDS: PRAMIPEXOLE 0.25 MG TAB PO SCH ×2 (09:54→21:11)
[2020-12-17] MEDS ORDERED: BENZONATATE 100 MG CAP PO ONE ×2 (10:06→14:06)
[2020-12-17] MEDS ORDERED: clonazePAM 0.5 MG TAB ONE ×2 (10:07→14:07)
[2020-12-17] MEDS ORDERED: PREGABALIN 75 MG CAP PO ONE ×2 (10:07→14:07)
[2020-12-17] MEDS ORDERED: PANTOPRAZOLE 40MG TABLET PO ONE (10:07)
[2020-12-17] MEDS ORDERED: SPIRONOLACTONE 25 MG TABLET ONE (10:09)
[2020-12-17] MEDS: QUETIAPINE 25 MG TAB PO SCH ×2 (10:28→21:09)
[2020-12-17] MEDS: SOD FERRIC GLUC COMPLX/SUCROSE 125 MG in NA CHLORIDE 0.9% 100 ML IV SCH (10:28)
[2020-12-17] MEDS ORDERED: methocarbamoL 500 MG TAB PO PRN (10:43)
[2020-12-17] MEDS: HYDROCODONE/APAP 10/325 TAB PO PRN ×2 (11:42→21:12)
[2020-12-17] MEDS: AMLODIPINE 5 MG TAB PO SCH (11:43)
[2020-12-17] MEDS ORDERED: AMLODIPINE 5 MG TAB ONE (12:02)
[2020-12-17] MEDS ORDERED: HYDROCODONE/APAP 10/325 TAB ONE (12:02)
--- NOTE | 2020-12-17 17:41 | P.PN ---
Subjective Date of Service: 12/17/20 Primary Care Provider: none Chief Complaint: Status post replacement of tracheostomy Subjective: Improving (no further blood clots, tolerated trach collar for several hours, having lots of anxiety. without new complaints) Review of Systems 10-point ROS is otherwise unremarkable Physical Examination - Vital Signs Temperature: 97.5 F Blood Pressure: 117/42 Pulse: 63 Respirations: 18 Pulse Ox (%): 100 Assessment & Plan Physician Review Additional Text: Physical Exam General: AOx3, anxious, obese HEENT: MMM, trach in place, no bleeding noted Respiratory: Diminished bilaterally Cardiovascular: trace b/l pedal edema, regular rate/rhythm Gastrointestinal: soft, nontender, nondistended Integumentary: Pressure ulcer unstageable, wound dressing in place Neurological: Normal speech, normal affect, diminished sensation to b/l feet/hands Problem List Microcytic anemia secondary to hemoptysis/bleeding from tracheostomy site Chronic respiratory failure requiring tracheostomy/home ventilator S/P severe COVID pneumonia Sacral Decubitus ulceration, stage 4 Diabetes mellitus type 2, non-insulin dependent Hypertension Anxiety Neuropathy Morbid obesity, debility, weakness chronic felton anemia - secondary to tracheostomy site bleeding, possible of chronic disease with recent COVID infection / prolonged hospitalization/LTAC ENT consulted, pt taken to OR on 12/15, with some minimal/mild bleed, s/p surgicel. unable to upsize tracheostomy no blood clots / bleeding since OR. hgb slightly decreased today, with some iron deficiency component, IV iron ordered Pulm consulted given h/o COVID, and questionable pneumonia - does not feel patient has pneumonia, no indication for antibiotics at this time wound care consulted for sacral decubitus ulcer - report ~3.5 cm deep, recommend santyl, and to continue wound vac on discharge A.c. HS Accu-Cheks insulin therapy. ADA diet confirm home meds, anxiety / neuropathy medications Patient morbidly obese, very weak. Patient was supposed to be discharged with home health/hospital bed etc from [facility] in [place], patient was discharged on December 08 and patient has still not received these accommodation/resources. mother reports felton catheter in place for months (exchanged multiple times), she states it's in place to minimize risk of urinating on sacral decubitus ulcer, pt denies h/o urinary retention/incontinence. denies prior voiding trial. mother unsure of plan of felton catheter - continue for now, will need urology follow up seems to be doing better social media job titles consulted for assistance VTE: SCDs Code: full Dispo: anticipate dc home in 24-48hrs, improving, needs home health set up HH for PT, trach care, wound care Time Spent Managing Pts Care (In Minutes): 45
[2020-12-17] MEDS: MONTELUKAST 10 MG TAB PO SCH (21:10)
[2020-12-17] MEDS: SERTRALINE HCL 100 MG TAB PO SCH (21:10)
[2020-12-17] MEDS: DOXEPIN HCL 10 MG CAP PO SCH (21:37)
[2020-12-18] MEDS: HYDROCODONE/APAP 10/325 TAB PO PRN ×3 (02:04→17:29)
[2020-12-18] MEDS ORDERED: LORazepam 2 MG/ML VIAL IV ONE (02:31)
[2020-12-18 06:27] LABS: Absolute Lymphocytes (CBC) 1.2 K/uL (0.7-4.9); Hematocrit 25.5 % (39.6-49.0); Lymphocytes % 13.9 % (15.3-44.8); MPV 9.3 fL (7.6-11.3); RBC Red Blood Cell Count 3.21 M/uL (4.33-5.43)
[2020-12-18 06:51] LABS: BUN Blood Urea Nitrogen 8 mg/dL (7-18); Bicarbonate 33 mmol/L (21-32); Glucose Level 101 mg/dL (74-106); Magnesium 2.3 mg/dL (1.8-2.4); Potassium 4.2 mmol/L (3.5-5.1); Sodium Level 141 mmol/L (136-145)
[2020-12-18] MEDS: INSULIN -REGULAR HUMAN 50 UNIT/0.5 ML ML SQ SCH ×4 (07:30→20:54)
[2020-12-18] MEDS: JUVEN PACKET PO SCH ×2 (09:00→21:00)
[2020-12-18] MEDS: MEDIHONEY 44 ML TOPICAL TUBE TOP SCH (09:00)
[2020-12-18] MEDS: NYSTATIN PWDR 100000 UNIT/GM TOP SCH (09:00)
[2020-12-18] MEDS: AMLODIPINE 5 MG TAB PO SCH (09:50)
[2020-12-18] MEDS: QUETIAPINE 25 MG TAB PO SCH ×2 (09:51→20:53)
[2020-12-18] MEDS: clonazePAM 0.5 MG TAB PO SCH ×3 (09:52→20:58)
[2020-12-18] MEDS: SPIRONOLACTONE 25 MG TABLET PO SCH (09:52)
[2020-12-18] MEDS: PREGABALIN 75 MG CAP PO SCH ×3 (09:52→20:53)
[2020-12-18] MEDS: PRAMIPEXOLE 0.25 MG TAB PO SCH ×2 (09:52→20:54)
[2020-12-18] MEDS: BENZONATATE 100 MG CAP PO SCH ×3 (09:52→20:55)
[2020-12-18] MEDS: PANTOPRAZOLE 40MG TABLET PO SCH (09:52)
[2020-12-18] MEDS: ENSURE HIGH PROTEIN 237 ML CAN PO SCH ×3 (09:53→21:00)
[2020-12-18] MEDS: SOD FERRIC GLUC COMPLX/SUCROSE 125 MG in NA CHLORIDE 0.9% 100 ML IV SCH (09:53)
[2020-12-18] MEDS: BUDESONIDE 0.5 MG/2 ML NEB NEB SCH ×2 (10:17→20:10)
[2020-12-18] MEDS: ARFORMOTEROL TARTRATE 15 MCG/2 ML VIAL.NEB NEB SCH ×2 (10:17→20:10)
--- NOTE | 2020-12-18 12:09 | P.PN ---
Date of Service: 12/18/20 ENT Progress Note Patient seen and examined. Tolerating trach collar in day and home vent at night. Tolerating po regular diet. Coughed up dime-size blood clot but no gonzález bleeding episodes. No other complaints today. Neck: #4 VENEER TRIMMER intact on trach collar O2 and cuff deflated; tolerating speaking valve without any significant desaturations. Imp: 1. Hemoptysis-- resolved 2. Respiratory failure resulting in Trach-- stable 3. Morbid obesity Plan: 1. When ok with IM and pulmonology, can start trach decannulation process. 2. Nursing to clean inner cannula TID. Will follow as needed. Thank you for this consult.
[2020-12-18] MEDS: ALBUTEROL 2.5 MG/3 ML NEB SOL NEB PRN (16:20)
[2020-12-18] MEDS: IPRATROPIUM BROM 0.5MG/2.5ML NEB PRN (16:20)
[2020-12-18] MEDS ORDERED: LORAZEPAM 0.5 MG TABLET PO ONE (17:00)
--- NOTE | 2020-12-18 17:25 | P.PN ---
Subjective Date of Service: 12/18/20 Primary Care Provider: none Chief Complaint: Status post replacement of tracheostomy Subjective: Improving (doing much better this morning, oxygen requirement improved reports had rough earlier morning with some bleeding adn blood clot in trach) Review of Systems 10-point ROS is otherwise unremarkable Physical Examination - Vital Signs Temperature: 97.0 F Blood Pressure: 181/76 Pulse: 91 Respirations: 18 Pulse Ox (%): 98 Assessment & Plan Physician Review Additional Text: Physical Exam General: AOx3, anxious, obese HEENT: trach in place, blood clot in tissue at bedside Respiratory: Diminished bilaterally Cardiovascular: trace b/l pedal edema, regular rate/rhythm Gastrointestinal: soft, nontender, nondistended Integumentary: Pressure ulcer with wound dressing in place Problem List Microcytic anemia secondary to hemoptysis/bleeding from tracheostomy site Chronic respiratory failure requiring tracheostomy/home ventilator S/P severe COVID pneumonia Sacral Decubitus ulceration, stage 4 Diabetes mellitus type 2, non-insulin dependent Hypertension Anxiety Neuropathy Morbid obesity, debility, weakness chronic felton anemia - secondary to tracheostomy site bleeding, possible of chronic disease with recent COVID infection / prolonged hospitalization/LTAC bleeding this morning with blood clot, hgb down to 8.0 iron def as well, on IV iron now ENT to re-eval today pulm consulted given h/o covid and questionable pneumonia - recommend no abx continue wound care continue home pain/anxiety medications continue chronic felton catheter social science teacher consulted for assistance VTE: SCDs Code: full Dispo: anticipate dc home in 48hrs, hgb dropping, bleed again HH for PT, trach care, wound care social science teacher consulted Time Spent Managing Pts Care (In Minutes): 45
[2020-12-18] MEDS: MONTELUKAST 10 MG TAB PO SCH (20:54)
[2020-12-18] MEDS: DOXEPIN HCL 10 MG CAP PO SCH (20:54)
[2020-12-18] MEDS: SERTRALINE HCL 100 MG TAB PO SCH (20:54)
[2020-12-19 06:21] LABS: Absolute Lymphocytes (CBC) 1.3 K/uL (0.7-4.9); Hematocrit 27.4 % (39.6-49.0); MPV 9.6 fL (7.6-11.3); RBC Red Blood Cell Count 3.44 M/uL (4.33-5.43)
[2020-12-19 06:41] LABS: ALT/SGPT 31 U/L (12-78); AST/SGOT 29 U/L (15-37); Albumin 2.7 g/dL (3.4-5.0); Alkaline Phosphatase 78 U/L (45-117); BUN Blood Urea Nitrogen 10 mg/dL (7-18); Bicarbonate 31 mmol/L (21-32); Bilirubin Total 0.4 mg/dL (0.2-1.0); Glucose Level 89 mg/dL (74-106); Magnesium 2.3 mg/dL (1.8-2.4); Phosphorus 4.4 mg/dL (2.5-4.9); Potassium 4.1 mmol/L (3.5-5.1); Protein, Total 6.8 g/dL (6.4-8.2); Sodium Level 140 mmol/L (136-145)
[2020-12-19] MEDS: INSULIN -REGULAR HUMAN 50 UNIT/0.5 ML ML SQ SCH ×4 (07:30→21:00)
--- NOTE | 2020-12-19 08:23 | RAD REPORT ---
EXAM DESCRIPTION: RAD - Chest Single View - 12/19/2020 6:31 am CLINICAL HISTORY: SOB, hemoptysis COMPARISON: December 14 portable, December 15 CT chest TECHNIQUE: AP portable chest image was obtained 12/19/2020 6:31 am . FINDINGS: Lung volumes remain very low. Large body habitus contributes to limited visualization. Inf iltrate and/or atelectasis may well remain in the lung bases. There is slightly better aeration of th e right lung base than seen on the prior portable chest film. Trach tube remains in place. No new tub e or line. Heart size is upper normal, stable with no vascular engorgement. No pneumothorax or large pleural effusion. No acute bony abnormality seen. No acute aortic findings suspected. IMPRESSION: Limited portable study showing partial resolution of lung base atelectasis or lung base infiltrate changes. No new or progressive finding.
[2020-12-19] MEDS: NYSTATIN PWDR 100000 UNIT/GM TOP SCH (09:00)
[2020-12-19] MEDS: MEDIHONEY 44 ML TOPICAL TUBE TOP SCH (09:00)
[2020-12-19] MEDS: JUVEN PACKET PO SCH ×2 (09:00→21:00)
[2020-12-19] MEDS: ENSURE HIGH PROTEIN 237 ML CAN PO SCH ×2 (09:00→21:00)
[2020-12-19] MEDS: BUDESONIDE 0.5 MG/2 ML NEB NEB SCH ×2 (09:17→20:10)
[2020-12-19] MEDS: ARFORMOTEROL TARTRATE 15 MCG/2 ML VIAL.NEB NEB SCH ×2 (09:17→20:10)
[2020-12-19] MEDS: SOD FERRIC GLUC COMPLX/SUCROSE 125 MG in NA CHLORIDE 0.9% 100 ML IV SCH (09:45)
--- NOTE | 2020-12-19 11:54 | P.PN ---
Subjective Date of Service: 12/19/20 Primary Care Provider: none Chief Complaint: Status post replacement of tracheostomy No new complaints patient is on a ventilator no hemoptysis Physical Examination - Vital Signs Temperature: 97.0 F Blood Pressure: 132/63 Pulse: 64 Respirations: 18 Pulse Ox (%): 100 Assessment & Plan - Problems (Diagnosis) (1) Hemoptysis Current Visit: Yes Status: Acute Plan: Plan to wean him from the ventilator change him over to trach collar alternating with ventilator if needed plan for discharge this probably in get intermittent bleeding from granulomatous tissue in his trachea ovoid Lasix use spironolactone p.r.n. probably has underlying hypokalemic metabolic alkalosis final signs stable Physician Review Additional Text: P
[2020-12-19] MEDS: QUETIAPINE 25 MG TAB PO SCH ×2 (13:10→21:36)
[2020-12-19] MEDS: SPIRONOLACTONE 25 MG TABLET PO SCH (13:10)
[2020-12-19] MEDS: AMLODIPINE 5 MG TAB PO SCH (13:11)
[2020-12-19] MEDS: PREGABALIN 75 MG CAP PO SCH ×3 (13:11→21:37)
[2020-12-19] MEDS: BENZONATATE 100 MG CAP PO SCH ×3 (13:11→21:37)
[2020-12-19] MEDS: clonazePAM 0.5 MG TAB PO SCH ×3 (13:12→21:36)
[2020-12-19] MEDS: PANTOPRAZOLE 40MG TABLET PO SCH (13:12)
[2020-12-19] MEDS: PRAMIPEXOLE 0.25 MG TAB PO SCH ×2 (13:12→21:37)
[2020-12-19] MEDS: HYDROCODONE/APAP 10/325 TAB PO PRN ×2 (13:20→22:55)
--- NOTE | 2020-12-19 14:38 | P.PN ---
Subjective Date of Service: 12/19/20 Primary Care Provider: none Chief Complaint: Status post replacement of tracheostomy Subjective: Improving (tolerating trach collar intermittently, with intermittent anxiety as well no further bleed/blood clot since yesterday. feels about the same) Review of Systems 10-point ROS is otherwise unremarkable Physical Examination - Vital Signs Temperature: 97.2 F Blood Pressure: 147/63 Pulse: 65 Respirations: 18 Pulse Ox (%): 100 Assessment & Plan Physician Review Additional Text: Physical Exam General: AOx3, anxious, obese HEENT: trach in place, no blood Respiratory: Diminished bilaterally, otherwise clear Cardiovascular: trace-1+ b/l pedal edema, regular rate/rhythm Gastrointestinal: soft, nontender, nondistended Integumentary: sacral decubitus ulcer with wound dressing in place Problem List Microcytic anemia secondary to hemoptysis/bleeding from tracheostomy site Chronic respiratory failure requiring tracheostomy/home ventilator S/P severe COVID pneumonia Sacral Decubitus ulceration, stage 4 Diabetes mellitus type 2, non-insulin dependent Hypertension Anxiety Neuropathy Morbid obesity, debility, weakness chronic felton anemia - multifactorial - chronic disease, iron deficiency, recent mild tracheostomy site bleed hgb stable, no further bleeding since 12/18 continue IV iron pulm consulted given h/o covid and questionable pneumonia - recommend no abx, trach collar minimize vent usage continue wound care continue home pain/anxiety medications continue chronic felton catheter - will discuss with patient about possible voiding trial, reports no h/o urinary retention licensed clinical social worker consulted for assistance VTE: SCDs Code: Full Dispo: anticipate dc home in ~48hrs HH for PT, trach care, wound care licensed clinical social worker consulted Time Spent Managing Pts Care (In Minutes): 45
[2020-12-19] MEDS: DOXEPIN HCL 10 MG CAP PO SCH (21:36)
[2020-12-19] MEDS: SERTRALINE HCL 100 MG TAB PO SCH (21:36)
[2020-12-19] MEDS: MONTELUKAST 10 MG TAB PO SCH (21:37)
[2020-12-20] MEDS: HYDROCODONE/APAP 10/325 TAB PO PRN (02:59)
[2020-12-20 07:09] LABS: Absolute Lymphocytes (CBC) 1.3 K/uL (0.7-4.9); Basophils % 0.9 % (0-1.3); Hematocrit 26.4 % (39.6-49.0); Lymphocytes % 17.3 % (15.3-44.8); MPV 9.8 fL (7.6-11.3)
[2020-12-20 07:29] LABS: BUN Blood Urea Nitrogen 10 mg/dL (7-18); Bicarbonate 30 mmol/L (21-32); Glucose Level 99 mg/dL (74-106); Magnesium 2.3 mg/dL (1.8-2.4); Potassium 4.2 mmol/L (3.5-5.1); Sodium Level 140 mmol/L (136-145)
[2020-12-20] MEDS: INSULIN -REGULAR HUMAN 50 UNIT/0.5 ML ML SQ SCH ×4 (07:30→21:00)
[2020-12-20] MEDS: clonazePAM 0.5 MG TAB PO SCH ×3 (09:00→22:55)
[2020-12-20] MEDS: PREGABALIN 75 MG CAP PO SCH ×3 (09:00→22:54)
[2020-12-20] MEDS: SPIRONOLACTONE 25 MG TABLET PO SCH ×2 (09:00→13:50)
[2020-12-20] MEDS: NYSTATIN PWDR 100000 UNIT/GM TOP SCH ×2 (09:00→16:00)
[2020-12-20] MEDS: QUETIAPINE 25 MG TAB PO SCH ×3 (09:00→22:55)
[2020-12-20] MEDS: BENZONATATE 100 MG CAP PO SCH ×3 (09:00→21:00)
[2020-12-20] MEDS: JUVEN PACKET PO SCH (09:00)
[2020-12-20] MEDS: ENSURE HIGH PROTEIN 237 ML CAN PO SCH ×2 (09:00→21:00)
[2020-12-20] MEDS: PRAMIPEXOLE 0.25 MG TAB PO SCH ×3 (09:00→22:55)
[2020-12-20] MEDS: PANTOPRAZOLE 40MG TABLET PO SCH ×2 (09:00→13:49)
[2020-12-20] MEDS: AMLODIPINE 5 MG TAB PO SCH ×2 (09:00→13:48)
[2020-12-20] MEDS: MEDIHONEY 44 ML TOPICAL TUBE TOP SCH ×2 (09:00→16:30)
[2020-12-20] MEDS ORDERED: ARFORMOTEROL TARTRATE 15 MCG/2 ML VIAL.NEB ONE (09:24)
[2020-12-20] MEDS: SOD FERRIC GLUC COMPLX/SUCROSE 125 MG in NA CHLORIDE 0.9% 100 ML IV SCH (10:03)
[2020-12-20] MEDS: BUDESONIDE 0.5 MG/2 ML NEB NEB SCH (12:37)
[2020-12-20] MEDS: ARFORMOTEROL TARTRATE 15 MCG/2 ML VIAL.NEB NEB SCH (12:37)
--- NOTE | 2020-12-20 15:02 | P.PN ---
Subjective Date of Service: 12/20/20 Primary Care Provider: none Chief Complaint: Status post replacement of tracheostomy Subjective: Improving (intermittently tolerates trach off vent. no bleeding, hgb stable.) Review of Systems 10-point ROS is otherwise unremarkable Physical Examination - Vital Signs Temperature: 97 F Blood Pressure: 138/97 Pulse: 60 Respirations: 18 Pulse Ox (%): 100 - Studies Microbiology Data (last 24 hrs): 12/14/20 23:30 Blood - Blood Aerobic Blood Culture - Final No growth in 5 days. 12/14/20 23:30 Blood - Blood Anaerobic Blood Culture - Final No growth in 5 days. 12/14/20 23:25 Blood - Blood Aerobic Blood Culture - Final No growth in 5 days. 12/14/20 23:25 Blood - Blood Anaerobic Blood Culture - Final No growth in 5 days. Assessment & Plan Physician Review Additional Text: Physical Exam General: AOx3, anxious, obese HEENT: trach in place, no blood Respiratory: Diminished bilaterally, otherwise clear Cardiovascular: trace b/l pedal edema, regular rate/rhythm Gastrointestinal: soft, nontender, nondistended Integumentary: sacral decubitus ulcer with wound dressing in place felton in place Problem List Microcytic anemia secondary to hemoptysis/bleeding from tracheostomy site Chronic respiratory failure requiring tracheostomy/home ventilator S/P severe COVID pneumonia Sacral Decubitus ulceration, stage 4 Diabetes mellitus type 2, non-insulin dependent Hypertension Anxiety Neuropathy Morbid obesity, debility, weakness chronic felton anemia - multifactorial - chronic disease, iron deficiency, recent mild tracheostomy site bleed hgb stable, no further bleeding since 12/18 continue IV iron pulm consulted given h/o covid and questionable pneumonia - recommend no abx, trach collar minimize vent usage continue wound care, will be set up for wound vac outpatient / wound clinic continue home pain/anxiety medications continue chronic felton catheter - bladder training today/tonight q4h clamp, and unclamp for 15min if does well, will dc felton for voiding trial tomorrow morning hospice social worker consulted for assistance VTE: SCDs Code: Full Dispo: anticipate dc home in ~24hrs HH for PT, trach care, wound care hospice social worker consulted Time Spent Managing Pts Care (In Minutes): 40
[2020-12-20] MEDS: GUAIFENESIN/CODEINE 5ML UCUP PO PRN (17:39)
[2020-12-20] MEDS: MONTELUKAST 10 MG TAB PO SCH (22:54)
[2020-12-20] MEDS: SERTRALINE HCL 100 MG TAB PO SCH (22:55)
[2020-12-20] MEDS: DOXEPIN HCL 10 MG CAP PO SCH (23:04)
[2020-12-21] MEDS: ARFORMOTEROL TARTRATE 15 MCG/2 ML VIAL.NEB NEB SCH ×2 (00:20→12:40)
[2020-12-21] MEDS: BUDESONIDE 0.5 MG/2 ML NEB NEB SCH ×2 (00:20→12:40)
[2020-12-21] MEDS: HYDROCODONE/APAP 10/325 TAB PO PRN ×3 (04:43→15:05)
[2020-12-21 06:18] LABS: Absolute Lymphocytes (CBC) 1.1 K/uL (0.7-4.9); Basophils % 0.9 % (0-1.3); Hematocrit 27.3 % (39.6-49.0); Lymphocytes % 13.5 % (15.3-44.8); MPV 9.7 fL (7.6-11.3); RBC Red Blood Cell Count 3.37 M/uL (4.33-5.43)
[2020-12-21 06:20] LABS: BUN Blood Urea Nitrogen 11 mg/dL (7-18); Bicarbonate 31 mmol/L (21-32); Glucose Level 139 mg/dL (74-106); Magnesium 2.2 mg/dL (1.8-2.4); Potassium 4.1 mmol/L (3.5-5.1); Sodium Level 142 mmol/L (136-145)
[2020-12-21] MEDS: INSULIN -REGULAR HUMAN 50 UNIT/0.5 ML ML SQ SCH ×3 (07:30→16:30)
[2020-12-21] MEDS: BENZONATATE 100 MG CAP PO SCH ×2 (09:00→14:00)
[2020-12-21] MEDS: ENSURE HIGH PROTEIN 237 ML CAN PO SCH (09:00)
[2020-12-21] MEDS: MEDIHONEY 44 ML TOPICAL TUBE TOP SCH (09:00)
[2020-12-21] MEDS: clonazePAM 0.5 MG TAB PO SCH ×2 (11:02→15:04)
[2020-12-21] MEDS: PRAMIPEXOLE 0.25 MG TAB PO SCH (11:02)
[2020-12-21] MEDS: SOD FERRIC GLUC COMPLX/SUCROSE 125 MG in NA CHLORIDE 0.9% 100 ML IV SCH (11:02)
[2020-12-21] MEDS: QUETIAPINE 25 MG TAB PO SCH (11:03)
[2020-12-21] MEDS: PANTOPRAZOLE 40MG TABLET PO SCH (11:03)
[2020-12-21] MEDS: AMLODIPINE 5 MG TAB PO SCH (11:04)
[2020-12-21] MEDS: PREGABALIN 75 MG CAP PO SCH ×2 (11:06→15:11)
[2020-12-21] MEDS: SPIRONOLACTONE 25 MG TABLET PO SCH (11:06)
[2020-12-21] MEDS: NYSTATIN PWDR 100000 UNIT/GM TOP SCH (11:09)
[2020-12-21] MEDS: GUAIFENESIN/CODEINE 5ML UCUP PO PRN (12:30)
[2020-12-21 13:21] VITALS: TEMP 97.1
[2020-12-21 13:31] VITALS: O2SAT 95
[2020-12-21 16:24] VITALS: BP 148/68
--- NOTE | 2020-12-21 17:16 | P.DS ---
Admission Date: 12/15/20 Discharge Date: 12/21/20 Primary Care Provider: none Disposition: DC HOME/HOME HEALTH CARE Discharge Condition: GOOD Reason for Admission: Status post replacement of tracheostomy Consultations: Pulmonology - Dr. Lancaster ENT - Dr. Fitzpatrick Procedures: CXR (12/14): Mild right lower lobe opacity probably pneumonia. This should be followed until it is clear to help exclude post obstructive process/ underlying mass CTA Chest (12/14): FINDINGS: Pulmonary arteries and vascular: Suboptimal bolus. No filling defects. Heart and mediastinum: Heart size is normal. Mediastinal and bilateral hilar lymph nodes are increased in number and measure up to 1.5 cm short axis (series 401 image 20). Thyroid gland: Visualized portions are normal. Lungs: Right perihilar and bilateral lower lobe atelectasis or consolidation are present. Mild bilateral perihilar groundglass opacities are noted. Airways: No filling defects. A tracheostomy tube is in place. No bronchiectasis. Pleura: No pneumothorax. Small right pleural effusion. Subphrenic structures: Within normal limits. Musculoskeletal and soft tissues: Osseous demineralization is noted in the proximal humeri. IMPRESSION: 1. No evidence of large proximal pulmonary embolus. Suboptimal bolus limits evaluation for branch emboli. 2. Multifocal atelectasis or consolidations are present, predominantly within the right lower lobe. Mild bilateral groundglass opacities may represent edema or infection. 3. Mediastinal and bilateral hilar lymph nodes are increased in number and m ildly increased in size. The largest burden of nodes is in the superior right mediastinum. These are favored to be reactive given patient age, however a small right perihilar or hilar neoplasm is not excluded. CXR (12/19): FINDINGS: Lung volumes remain very low. Large body habitus contributes to limited visualization. Infiltrate and/or atelectasis may well remain in the lung bases. There is slightly better aeration of the right lung base than seen on the prior portable chest film. Trach tube remains in place. No new tube or line. Heart size is upper normal, stable with no vascular engorgement. No pneumothorax or large pleural effusion. No acute bony abnormality seen. No acute aortic findings suspected. IMPRESSION: Limited portable study showing partial resolution of lung base atelectasis or lung base infiltrate changes. No new or progressive finding. Tracheoscopy and Tracheostomy change (12/15) by Dr. Fitzpatrick: Preoperative Diagnoses: 1. Hemoptysis. 2. Respiratory failure resulting in tracheostomy tube placement. Postoperative Diagnoses: 1. Tracheal stomal stenosis. 2. Respiratory failure resulting in tracheostomy tube placement. Procedure: 1. Tracheostomy change from #4 DCT Shiley tracheostomy tube to an LTC #4 Shiley tracheostomy tube. 2. Tracheoscopy with flexible laryngoscope. Problem List Microcytic anemia secondary to hemoptysis/bleeding from tracheostomy site, and iron deficiency Chronic respiratory failure requiring tracheostomy/home ventilator S/P severe COVID pneumonia s/p tracheostomy with tracheal stoma stenosis Sacral Decubitus ulceration, stage 4 Diabetes mellitus type 2, non-insulin dependent Hypertension Anxiety Neuropathy Morbid obesity, debility, weakness Chronic felton (now removed on 12/21) Brief History of Present Illness: 30-year-old male with morbid obesity, history of diabetes/hypertension and severe COVID infection requiring trach/home vent presents emergency department for hemoptysis. Patient's mother at bedside reports that he was hospitalized on July 03 to July 31 at [facility] and then transferred to [facility] where he was discharged MondayDecember 08. Mother reports that patient had his trach change approximately 3 weeks ago, they attempted to change the trach with a size 6 reportedly with great difficulty and ended up going down in size to a size 4. Mother reports ever since this is happened patient has had steady slow hemoptysis/blood in his suction/vent tubing. Mother reports that patient is to discharge with hospital bed and home health but this is still not been arranged after multiple attempts and reaching out to [facility] and patient's insurance company. Patient was evaluated in the emergency department, labs significant for hemoglobin 8.6 hematocrit 27.7 MCV 70.9 white blood cell count 10.7 D-dimer 932 potassium 3.4 glucose [address] PE protocol obtained which demonstrates no evidence of large proximal pulmonary embolus with suboptimal bolus limiting evaluation for brain emboli common multi focal atelectasis or consolidations present predominantly within the right lower lobe mild bilateral ground-glass opacities may represent edema versus infiltration, mediastinal and bilateral hilar lymph nodes increase in number and mildly increase in size with largest burden of nodes in the superior mediastinum given patient's age of likely to be reactive in nature. ED provider wishes to admit for further evaluation and management of hemoptysis/bleeding from trach/possible early pneumonia. Hospital Course: Patient had small blood clots clogging up his tracheostomy tubing and not allowing him to breathe at times. ENT was consulted and performed a tracheoscopy, noted minimal bleeding around the traceal stoma site and briefly placed some surgicel in the area. Patient's bleeding briefly resolved, recurred again one time, then resolved and was stable for a few days before discharge. His hemoglobin remained stable in the low 8s. Workup revealed a component of iron deficiency and he received 5 days of IV iron. Patient underwent continual weaning from the ventilator and had noted improvement during his hospitalization. Pulm was consulted and recommended the patient stay on trach collar as long as possible and only using his home vent when needed. There was a significant component of anxiety for the patient, related to being off the ventilator. Sacral decubitus ulcer - wound care was consulted, recommended some medihoney while hospitalized and discharged to follow up in wound healing center with Dr. Mayberry to be set up for wound vac placement. Chronic Felton - patient and his mother reported he had a chronic felton catheter in for several months (exchanged every few weeks). They reported no history of urinary issues and their understanding was the catheter was maintained to optim ize healing of his sacral wound. Patient underwent bladder training and felton catheter was removed on 12/21. He was able to void without issue. There was an issue regarding home health and certain equipment being set up for the patient. Per him and his mother, it was all approved by insurance, but no home health agency / providers were able to be set up for the week between discharge from LTAC and presentation to our ED. creative services producer and case management were consulted for assistance. Patient's mother was diligently calling to set up services as well. On day of discharge, patient's mother r eportedly found an agency and a provider who was filling out paperwork to see the patient soon. He was discharged home to continue his previous prescriptions. Vital Signs/Physical Exam: Physical Exam General: AAOx3, NAD, obese HEENT: trach in place, no bleeding, nonlabored respirations Respiratory: Diminished bilaterally, otherwise clear Cardiovascular: trace b/l pedal edema, regular rate/rhythm Gastrointestinal: soft, nontender, nondistended Integumentary: sacral decubitus ulcer with wound dressing in place Temp Pulse Resp BP Pulse Ox 97.1 F 79 16 148/68 H 99 12/21/20 16:00 12/21/20 16:00 12/21/20 16:00 12/21/20 16:00 12/21/20 16:00 Laboratory Data at Discharge: WBC 7.90 K/uL (4.3-10.9) 12/21/20 05:28 Hgb 8.4 g/dL (13.6-17.9) L 12/21/20 05:28 Hct 27.3 % (39.6-49.0) L 12/21/20 05:28 Plt Count 258 K/uL (152-406) 12/21/20 05:28 PT 14.3 SECONDS (9.5-12.5) H 12/14/20 23:16 INR 1.24 12/14/20 23:16 Sodium 142 mmol/L (136-145) 12/21/20 05:28 Potassium 4.1 mmol/L (3.5-5.1) 12/21/20 05:28 BUN 11 mg/dL (7-18) 12/21/20 05:28 Creatinine 0.62 mg/dL (0.55-1.3) 12/21/20 05:28 Glucose 139 mg/dL (74-106) H 12/21/20 05:28 Phosphorus 4.4 mg/dL (2.5-4.9) 12/19/20 06:02 Magnesium 2.2 mg/dL (1.8-2.4) 12/21/20 05:28 Total Bilirubin 0.4 mg/dL (0.2-1.0) 12/19/20 06:02 AST 29 U/L (15-37) 12/19/20 06:02 ALT 31 U/L (12-78) 12/19/20 06:02 Alkaline Phosphatase 78 U/L (45-117) 12/19/20 06:02 Home Medications: Amlodipine [Norvasc*] 2.5 mg PO DAILY 12/15/20 Arformoterol Tartrate [Brovana] 15 mcg NEB BID 12/15/20 Benzonatate 100 mg PO TID 12/15/20 Budesonide [Pulmicort] 0.5 mg NEB BID 12/15/20 Doxepin HCl [Sinequan*] 10 mg PO BEDTIME 12/15/20 Ipratropium/Albuterol Sulfate [Iprat-Albut 0.5-3(2.5) mg/3 ml] 0.5 - 2.5 mg NEB Q6H 12/15/20 Linagliptin [Tradjenta] 5 mg PO DAILY 12/15/20 Montelukast Sodium [Singulair] 10 mg PO BEDTIME 12/15/20 Pantoprazole [Protonix Tab*] 40 mg PO DAILY 12/15/20 Pramipexole Di-HCl [Mirapex] 0.25 mg PO BID 12/15/20 Pregabalin [Lyrica*] 75 mg PO TID 12/15/20 Quetiapine Fumarate [Seroquel] 12.5 mg PO BID 12/15/20 Sennosides/Docusate Sodium [Senna Plus 8.6-50 mg Tablet] 8.6 - 50 mg PO BEDTIME 12/15/20 Sertraline [Zoloft*] 100 mg PO BEDTIME 12/15/20 Spironolactone 25 mg PO DAILY 12/15/20 Ubidecarenone [Coenzyme Q10] 100 mg PO BID 12/15/20 clonazePAM [Clonazepam] 0.5 mg PO TID 12/15/20 methocarbamoL [Methocarbamol] 750 mg PO Q8H 12/15/20 Hydrocodone 10/APAP 325 [[place] 10/325*] 10 - 325 mg PO Q4H 12/17/20 Medihoney [Medihoney Woundcare Gel*] 1 appl TOP DAILY 30 Days #1 tube 12/17/20 Nystatin Powder [Mycostatin (Powder)*] 1 appl TOP DAILY 14 Days #1 btl 12/17/20 Ferrous Sulfate [Iron] 325 mg PO DAILY 30 Days #30 tablet 12/21/20 Guaifen W/Codeine Syrup [ROBITUSSIN A-C Syrup*] 10 ml PO QIDP PRN 7 Days #28 ucup 12/21/20 Soft Lens Rinse,Store Solution [Saline Solution] 355 ml MC Q48H 10 Days #5 bottle 12/21/20 New Medications: Ferrous Sulfate [Iron] 325 mg PO DAILY 30 Days #30 tablet Medihoney [Medihoney Woundcare Gel*] 1 appl TOP DAILY 30 Days #1 tube Nystatin Powder [Mycostatin (Powder)*] 1 appl TOP DAILY 14 Days #1 btl Guaifen W/Codeine Syrup [ROBITUSSIN A-C Syrup*] 10 ml PO QIDP PRN 7 Days #28 ucup PRN Reason: Cough Soft Lens Rinse,Store Solution [Saline Solution] 355 ml MC Q48H 10 Days #5 bottle Physician Discharge Instructions: You were found to have a minor bleed / irritation from your trach. ENT was consulted, evaluated, and placed some surgicel to prevent further bleeding. You had improvement of your symptoms and no further bleeding / blood clots. You were found to be anemic with iron deficiency and received 5 days of IV iron. Recommend continuing with daily Iron. Your felton cathter was removed and you were voiding without difficulty. Wound care evaluated your lower back wound, recommend alberto for now, and you will follow up with Dr. Mayberry in the wound care center to get set up for a wound vac. Continue with trach collar, using your vent only when feeling short of breath. Follow up with your PCP as scheduled. Diet: mech soft Activity: Fall precautions Followup: Terrance Mayberry MD [ACTIVE - CAN ADMIT] - Time spent managing pt's care (in minutes): 50
== END 2020-12-21 19:49 | disposition home health service (06) | DRG 205 ==
LOC: ER 22:10 → ERHOLD 12-15 03:09 → 2ND 12-17 17:37
PROVIDERS: ADMIT Hospitalist; ATTEND Hospitalist
PROC: 0B21XFZ Change Tracheostomy Device in Trachea, External Approach (ICD-10-PCS; principal; 2020-12-15 16:00)
PROC: 0BJ18ZZ Inspection of Trachea, Via Natural or Artificial Opening Endoscopic (ICD-10-PCS; 2020-12-15 16:00)
DX: J95.01 Hemorrhage from tracheostomy stoma (principal); L89.154 Pressure ulcer of sacral region, stage 4; J96.10 Chronic respiratory failure, unspecified whether with hypoxia or hypercapnia; Z68.43 Body mass index [BMI] 50.0-59.9, adult; E87.3 Alkalosis; D50.9 Iron deficiency anemia, unspecified; J95.03 Malfunction of tracheostomy stoma; F41.9 Anxiety disorder, unspecified; I10 Essential (primary) hypertension; E11.40 Type 2 diabetes mellitus with diabetic neuropathy, unspecified; Z86.16 Personal history of COVID-19; E66.01 Morbid (severe) obesity due to excess calories; Z20.822 Contact with and (suspected) exposure to COVID-19; Z88.2 Allergy status to sulfonamides
CPT/HCPCS: 36415; 71045; 71275; 80048; 80053; 80076; 82728; 82805; 82947; 83540; 83605; 83735; 83880; 84100; 84145; 84439; 84443; 84466; 84484; 85014; 85018; 85025; 85379; 85610; 86140; 87040; 93005; 94003; 94760; 96361; 96374; 96375; 97161; 97530; 99251; 99285; J0171; J0456; J0696; J1170; J2405; J2704; J2916; J7030; J7050; J7605; Q9967; U0003

== ENCOUNTER 2021-02-04 10:11 | Emergency (ER) | payer OTHER ==
--- OUTSIDE RECORDS SUMMARY | 2021-02-04 10:14 | XMS REPORT | Continuity of Care Document ---
:1990 Author Organization [facility] t Address [address] [place] [address] Care Team Providers Name Role Phone Margaret Mandujano Attending Clinician He DAVE, E Attending Clinician Yosi Aranda DO Attending Clinician Emmanuel Underwood DO Attending Clinician Noreen TAMEZ Attending Clinician Will TAMEZ J Attending Clinician Elisabeth TAMEZ, P Attending Clinician Bhavesh TAMEZ, [facility] Attending Clinician Maurilio MERRITT Attending Clinician Brandyn TAMEZ Attending Clinician Elan Attending Clinician Mendy TAMEZ Admitting Clinician Problems Condition Condition Condition Status Onset Resolution Last Treating Co mments Source Name Details Category Date Date Treatment Clinician Date GASTROENTE Condition Active 2015-01-12 Memoria RITIS 01-12 08:42:42 l 00:00: Roddy GASTROENTE 00 RITIS Active 01/12/2015 Condition [facility] HTN Condition Active 2015-01-12 Mem oria ESSENTIAL 01-12 08:42:42 l HTN 00:00: [place] ESSENTIAL 00 Active 01/12/2015 Condition 5 [facility] Essential Problem Active 2021-01-23 Me moria hypertensi 01-12 00:56:06 l on 00:00: Roddy (disorder) Essential 00 hypertensi on (disorder) Active 01/12/2015 Problem 01/23/2021 Data migrated from [employer] on 01/28/15. [facility] Group Gastroente Problem Active 2021-01-23 M emoria ritis 7-20 00:56:06 l (disorder) 00:00: Seb n Gastroente 00 ritis (disorder) Active 01/12/2015 Problem 01/23/2021 Data migrated from [employer] on 01/28/15. [facility] Group Morbid Problem Active 2021-01-23 Memor ia obesity 00:56:06 l (disorder) Morbid Herm robin obesity (disorder) Active Problem 01/23/2021 Medical Group Anemia Problem Active 2021-01-23 Memor ia (disorder) 00:56:06 l Anemia Roddy (disorder) Active Problem 01/23/2021 Medical Group Finding of Problem Active 2021-01-23 M emoria enzyme 00:56:06 l level Finding Roddy (finding) of enzyme level (finding) Active Problem 01/23/2021 Medical Group Hyperglyce Problem Active 2021-01-23 M emoria raul due to 00:56:06 l type 2 [place] diabetes Hyperglyce mellitus raul due to (disorder) type 2 diabetes mellitus (disorder) Active Problem 01/23/2021 Medical Group Hyperlipid Problem Active 2021-01-23 M emoria emia 00:56:06 l (disorder) Seb mrose Hyperlipid emia (disorder) Active Problem 01/23/2021 [facility] Group Allergies, Adverse Reactions, Alerts Allergy Allergy Status Severity Reaction(s) Onset Inactive Treating Comm ents Source Name Type Date Date Clinician sulfa sulfa Active Memoria drugs drugs pari Pereyra Social History Smoking Status Start Date Stop Date Source Social History 2020-12-11 14:24:18 2020-12-11 14:24:18 Dorita Pereyra Medications Ordered Filled Start Stop Current Ordering Indication Dosage Frequency Signature Comments Components Source Medication Medication Date Date Medication? Clinician (SIG) Name Name sertraline Yes 100 mg = 1 M emoria 100 mg oral 6-18 tab, PO, l tablet 15:12: Bedtime, 0 Shantelle nn 00 Refill(s) ondansetron Yes 4 mg = 1 Me moria 4 mg oral 6-18 tab, PO, l tablet 15:12: Q6H, 0 Roddy 00 Refill(s) pregabalin Yes 75 mg = 1 Me moria 75 MG Oral 6-18 cap, PO, l Capsule 15:12: TID, 0 Roddy [Lyrica] 00 Refill(s) Linagliptin Yes 5 mg = 1 Me moria 5 MG Oral 6-18 tab, PO, l Tablet 15:11: Daily, 0 Roddy [Tradjenta] 00 Refill(s) Pramipexole Yes 0.25 mg = M emoria dihydrochlo 6-18 1 tab, PO, l ride 0.25 15:11: BID, 0 Seb n MG Oral 00 Refill(s) Tablet [Mirapex] amLODIPine Yes 2.5 mg = Mem oria 5 mg oral 6-18 0.5 tab, l tablet 15:11: PO, Daily, Shantelle nn 00 0 Refill(s) quetiapine Yes 25 mg = 1 Me moria 25 MG Oral 6-18 tab, PO, l Tablet 15:10: Daily, 0 Roddy [Seroquel] 00 Refill(s) benzonatate Yes 100 mg = 1 Memoria 100 mg oral 6-18 cap, PO, l capsule 15:10: TID, 0 [place] 00 Refill(s) oxyCODONE Yes 10 mg, PO, Me moria 10 mg 6-18 Q4H, 0 l extended 15:09: Refill(s) Herm robin release 00 Acetaminoph Yes 1 tab, PO, Memoria en 325 MG / 6-18 Q4H, PRN l Hydrocodone 15:09: Pain, X 30 Roddy Bitartrate 00 day, # 180 10 MG Oral tab, 0 Tablet Refill(s), [[facility]: ] [facility][id number], 167.64, cm, 08/30/19 14:31:00 [employer], Height, 190, kg, 08/30/19 14:31:00 [employer], Weight cetirizine Yes 10 mg = 1 Me moria 10 mg oral 6-18 tab, PO, l tablet 15:09: Daily, 0 [place] 00 Refill(s) duloxetine Yes 10 mg, PO, M emoria 6-18 Bedtime, 0 l 15:07: Refill(s) Roddy spironolact Yes 25 mg = 1 M emoria one 25 mg 6-18 tab, PO, l oral tablet 15:07: Daily, 0 He rmann Refill(s) montelukast Yes 10 mg = 1 M emoria 10 mg oral 6-18 tab, PO, l tablet 15:06: Daily, 0 [place] 00 Refill(s) pantoprazol Yes 40 mg = 1 M emoria e 40 mg 6-18 tab, PO, l oral 15:06: Daily, 0 Roddy enteric 00 Refill(s) coated tablet Furosemide Yes 40 mg = 1 Me moria 40 MG Oral 6-18 tab, PO, l Tablet 15:06: BID, 0 [place] 00 Refill(s) sertraline Yes 100 mg = 1 M emoria 100 mg oral 6-18 tab, PO, l tablet 15:05: Daily, 0 Roddy Refill(s) Budesonide Yes 0.5 mg = 2 M emoria 0.25 MG/ML 6-18 mL, NEB, l Inhalant 15:05: BID, 0 Roddy Solution Refill(s) [Pulmicort] pramipexole Yes 0.125 mg = Memoria 0.125 mg 6-18 1 tab, PO, l oral tablet 15:04: BID, 0 Herm robin Refill(s) clonazePAM Yes 0.5 mg = 1 M emoria 0.5 mg oral 6-18 tab, PO, l tablet 15:04: TID, 0 [place] 00 Refill(s) Amphetamine Yes 30 mg = 1 M emoria aspartate 5-19 tab, PO, l 7.5 MG / 23:08: BID, # 180 Her carlin Amphetamine 00 tab, 0 Sulfate 7.5 Refill(s), MG / Pharmacy: [id number] 7.5 MG / [facility] tamine Sulfate 7.5 MG Oral Tablet [Adderall] Amphetamine 2020-0 Yes 30 mg = 1 M emoria aspartate 5-11 tab, PO, l 7.5 MG / 22:41: BID, # 60 Herm robin Amphetamine 00 tab, 0 Sulfate 7.5 Refill(s), MG / [id number] 7.5 MG / Dextroamphe tamine Sulfate 7.5 MG Oral Tablet [Adderall] Amphetamine 2020-0 Yes 30 mg = 1 M emoria aspartate 4-30 tab, PO, l 7.5 MG / 18:37: BID, # 60 Herm robin Amphetamine 00 tab, 0 Sulfate 7.5 Refill(s), MG / Pharmacy: [facility] 482 7.5 MG / Dextroamphe tamine Sulfate 7.5 MG Oral Tablet [Adderall] Amphetamine 2020-0 Yes 30 mg = 1 M emoria aspartate 3-06 tab, PO, l 7.5 MG / 21:23: BID, # 180 Her carlin Amphetamine 00 tab, 0 Sulfate 7.5 Refill(s), MG [id number] 7.5 MG / Dextroamphe tamine Sulfate 7.5 MG Oral Tablet [Adderall] amoxicillin 2020-0 Yes 500 mg = 1 Memoria 500 mg oral 3-06 tab, PO, l tablet 21:21: TID, X 7 [place] day, # 21 tab, 0 Refill(s), Pharmacy: [facility] #[id number] Amphetamine 2020-0 Yes 20 mg = 1 M emoria aspartate 5 2-12 tab, PO, l MG / 19:39: BID, # 60 [place] Amphetamine 00 tab, 0 Sulfate 5 Refill(s), MG [id number] 5 MG / Dextroamphe tamine Sulfate 5 MG Oral Tablet [Adderall] amLODIPine 2018-06 Yes 10 mg = 1 Me moria 10 mg oral 2-31 tab, PO, l tablet 18:07: Daily, # [place] 00 90 tab, 3 Refill(s), Pharmacy: [facility] #[id number] lisinopril 2018-06 Yes 40 mg = 2 Me moria 20 mg oral 2-31 tab, PO, l tablet 18:07: Daily, # [place] 00 180 tab, 3 Refill(s), Pharmacy: [facility] #[id number] Amphetamine 2018-06 Yes 20 mg = 1 M emoria aspartate 5 2-12 tab, PO, l MG / 16:52: BID, # 60 [place] Amphetamine 00 tab, 0 Sulfate 5 Refill(s), MG / [facility]: [id number] 5 MG / Dextroamphe tamine Sulfate 5 MG Oral Tablet [Adderall] Amphetamine 2018-06 No 20 mg = 1 M emoria aspartate 5 2-11 tab, PO, l MG / 16:24: BID, 0 [place] Amphetamine 00 Refill(s) Sulfate 5 MG / [facility] 5 MG / Dextroamphe tamine Sulfate 5 MG Oral Tablet [Adderall] lisinopril 2018-06 Yes 20 mg = 1 Me moria 20 mg oral 2-11 tab, PO, l tablet 16:24: Daily, 0 [place] 00 Refill(s) amLODIPine 2018-06 Yes 10 mg = 1 Me moria 10 mg oral 2-11 tab, PO, l tablet 16:24: Daily, 0 [place] 00 Refill(s) Amlodipine Yes 1 cap, PO, M emoria 10 MG / 6-26 Daily, # l Benazepril 20:15: 30 cap, 3 He rmann hydrochlori 00 Refill(s), de 20 MG Pharmacy: [facility] [id number] Hydrochloro Yes 1 tab, PO, Memoria thiazide 25 6-20 Daily, # l MG / 18:16: 30 tab, 11 [place] Losartan 00 Refill(s), Potassium Pharmacy: 100 MG Oral [id number] 12 HR Yes 150 mg = 1 Memori a Bupropion 6-20 tab, PO, l Hydrochlori 18:07: BID, 0 Herm robin de 150 MG 00 Refill(s) Extended Release Tablet [Wellbutrin ] PROMETHAZIN Yes 1 po q Miguel bebeto E HCL 25 MG 7-20 6hrs prn l TABS 00:00: nausea [place] 00 LOMOTIL Yes 1 po now, Memor ia 2.5-0.025 7-20 then 1 po l MG TABS 00:00: PC each [place] 00 loose BM, no more 5/day LOSARTAN Yes 1 po q day Mem oria POTASSIUM-H 7-20 l CTZ 00:00: [place] 100-12.5 MG 00 TABS Vital Signs Vital Name Observation Time Observation Value Comments Source BMI Calculated 2019-08-30 20:31:00 Memori al [place] Systolic (mm Hg) 2019-08-30 20:31:00 Miguel rial [place] Diastolic (mm Hg) 2019-08-30 20:31:00 Mem orial [place] Heart Rate 2019-08-30 20:31:00 [facility] [place] Temperature Oral (F) 2019-08-30 20:31:00 97.5 F [facility] [place] Height 2019-08-30 20:31:00 167.64 cm [facility] [place] Weight 2019-08-30 20:31:00 [facility] [place] Systolic (mm Hg) 2019-06-05 16:19:00 Miguel rial [place] Diastolic (mm Hg) 2019-06-05 16:19:00 Mem orial [place] Heart Rate 2019-06-05 16:19:00 [facility] [place] Temperature Oral (F) 2019-06-05 16:19:00 98.1 F [facility] [place] Height 2019-06-05 16:19:00 167.64 cm [facility] [place] Weight 2019-06-05 16:19:00 [facility] [place] BMI Calculated 2019-06-05 16:19:00 Memori al [place] Weight 2017-12-13 18:02:00 [facility] [place] Heart Rate 2017-12-13 18:02:00 [facility] [place] Temperature Oral (F) 2017-12-13 18:02:00 98.2 F [facility] [place] Systolic (mm Hg) 2017-12-13 18:02:00 Miguel rial [place] Diastolic (mm Hg) 2017-12-13 18:02:00 Mem orial [place] Height 2015-01-12 13:42:42 [facility] [place] Weight 2015-01-12 13:42:42 [facility] [place] Systolic (mm Hg) 2015-01-12 13:42:42 Miguel Pereyra Diastolic (mm Hg) 2015-01-12 13:42:42 Mem orial [place] Heart Rate 2015-01-12 13:42:42 Dorita Pereyra Temperature Oral (F) 2015-01-12 13:42:42 98.2 F Dorita [place] Respitory Rate 2015-01-12 13:42:42 Radha Hyman Procedures Procedure Date / Time Performed Performing Clinician [facility] e smoking/tobacco 2015-01-12 13:42:42 Dorita carlin cessation, patient education and counseling Encounters Start End Encounter Admission Attending Care Care Encounter Source Date/Time Date/Time Type Type Clinicians Facility Department ID 2021-01-19 2021-01-21 Phone nullFlavo MG [id number] Memoria 19:14:59 04:59:59 Message r Primary 17 l Care Sugar Shantelle [facility] 2021-01-19 2021-01-20 Outpatient MG MG [id number] 14:14:59 23:59:59 17 2020-12-11 2020-12-12 [place] [id number] Memoria 14:30:00 04:59:59 r Primary 13 l Care Sugar Shantelle [facility] 2020-12-11 2020-12-11 [id number] 09:30:00 23:59:59 Margaret 13 Maryurir 2020-12-11 2020-12-11 Outpatient MHIE IE [id number] Memoria 09:30:00 09:30:00 13 l [place] 2020 2020-11-28 Phone nullFlavo MG [id number] Memoria 18:23:07 04:59:59 Message r Primary 15 l Care Sugar Shantelle [facility] 2020 2020-11-27 Outpatient MG MG [id number] 13:23:07 23:59:59 15 2020-11-19 2020-11-21 Phone nullFlavo MG [id number] Memoria 21:33:43 04:59:59 Message r Primary 14 l Care Sugar Shantelle [facility] 2020-11-19 2020-11-20 [id number] 16:33:43 23:59:59 14 2020-10-28 2020-10-30 Phone nullFlavo MHMG [id number] Memoria 13:35:50 04:59:59 Message r Primary 13 l Care Sugar Shantelle [facility] 2020-10-28 2020-10-29 Outpatient [facility] MH[facility] [id number] 08:35:50 23:59:59 13 2020-08-05 2020-08-05 Patient Avril Cutler [id number] 00:00:00 00:00:00 Outreach E Olsen [id number] [place] [id number] [id number] 2020-07-04 2020-07-31 Hospital Sravanthi Aranda 1.2.84 [id number] [id number] 01:48:00 10:30:00 Encounter Ok Underwood 350.1.1 3.10 [facility] [id number] Roddy Solis [id number] [facility]ly [facility]86 [facility] 2020-07-24 2020-07-24 Anesthesia [facility] Amberjohn Carmona 1.2.8 40.114 [id number] 13:58:00 15:50:00 Jhon Ahumada 350.1.13.10 [facility] [id number] [id number] 2020-07-17 2020-07-17 Patient Avril Cutler [id number] 00:00:00 00:00:00 Outreach E Olsen 350.1.13.10 [place] [id number] [id number] 2020-07-14 2020-07-16 Phone nullFlavo MHMG [id number] Memoria 22:23:55 05:59:59 Message r Primary 12 l Care Sugar Shantelle [facility] 2020-07-14 2020-07-15 Outpatient [facility] MHMG [id number] 16:23:55 23:59:59 12 2020-07-14 2020-07-15 Between nullFlavo MHMG [id number] Memoria 14:54:36 14:54:36 Visit r Primary 20 l Care Sugar Shantelle [facility] 2020-07-14 2020-07-15 Outpatient [facility] MHMG [id number] 08:54:36 08:54:36 20 2020-04-27 2020-04-29 Phone nullFlavo [facility]MG [id number] Memoria 21:07:15 05:59:59 Message r Primary 11 l Care Sugar Shantelle [facility] 2020-04-27 2020-04-28 Outpatient MHMG MHMG [id number] 15:07:15 23:59:59 11 2020-04-21 2020-04-22 Between nullFlavo MHMG [id number] Memoria 15:39:48 15:39:48 Visit r Primary 18 l Care Sugar Shantelle [facility] 2020-04-21 2020-04-22 Outpatient MHMG MHMG [id number] 10:39:48 10:39:48 18 2020-04-20 2020-04-22 Phone nullFlavo MHMG [id number] Memoria 19:37:58 04:59:59 Message r Primary 10 l Care Sugar Shantelle [facility] 2020-04-20 2020-04-21 Outpatient MHMG MHMG [id number] 14:37:58 23:59:59 10 2020-04-20 2020-04-21 Between nullFlavo MHMG [id number] Memoria 18:56:19 18:56:19 Visit r Primary 15 l Care Sugar Shantelle [facility] 2020-04-21 2020-04-21 Outpatient MHIE MHIE [id number] Memoria 16:15:00 16:15:00 12 l [place] 2020-04-20 2020-04-21 Outpatient MHMG MHMG [id number] 13:56:19 13:56:19 15 2020-04-16 2020-04-18 Phone nullFlavo MHMG [id number] Memoria 19:27:48 04:59:59 Message r Primary 09 l Care Sugar Shantelle [facility] 2020-04-16 2020-04-18 Phone nullFlavo MHMG [id number] Memoria 16:43:19 04:59:59 Message r Primary 08 l Care Sugar Shantelle [facility] 2020-04-16 2020-04-17 Outpatient MHMG MHMG [id number] 14:27:48 23:59:59 09 2020-04-16 2020-04-17 Outpatient MHMG MHMG [id number] 11:43:19 23:59:59 08 2020-04-17 2020-04-17 Ambulatory nullFlavo MHMG [id number] Memoria 15:15:00 15:15:00 Pre-Reg r Primary 11 l Care Sugar Shantelle nn [facility] 2020-04-17 2020-04-17 Outpatient MHIE MHIE [id number] Memoria 10:15:00 10:15:00 11 l [place] 2020-04-17 2020-04-17 Outpatient Nazia, MHMG MHMG [id number] 10:15:00 10:15:00 Margaret Addi Lynchitar 2020-04-14 2020-04-16 Phone nullFlavo MHMG [id number] Memoria 20:17:52 04:59:59 Message r Primary 07 l Care and [place] [facility] 2020-04-14 2020-04-15 Outpatient MHMG MHMG [id number] 15:17:52 23:59:59 07 2020-04-07 2020-04-07 Outpatient MHIE MHIE [id number] Memoria 11:15:00 11:15:00 10 l [place] 2020-03-31 2020-04-01 Between nullFlavo MHMG [id number] Memoria 16:48:40 16:48:40 Visit r Primary 11 l Care Sugar Shantelle nn [facility] 2020-03-31 2020-04-01 Outpatient MHMG MHMG [id number] 11:48:40 11:48:40 11 2020-03-31 2020-03-31 Outpatient MHIE MHIE [id number] Memoria 11:30:00 11:30:00 09 l [place] 2020-01-03 2020-01-03 Ambulatory nullFlavo [facility] Family 5 [id number] Memoria 15:00:00 15:00:00 Pre-Reg r Medicine 08 l Ck [place] 2020-01-03 2020-01-03 Outpatient MHIE MHIE [id number] Memoria 10:00:00 10:00:00 08 l [place] 2020-01-03 2020-01-03 Outpatient Nazia, MHMG MHMG [id number] 10:00:00 10:00:00 Margaret Gomes 2019-11-12 2019-11-14 Phone nullFlavo [facility] Family [id number] Memoria 20:57:59 04:59:59 Message r Medicine 06 pari Pereyra 2019-11-12 2019-11-13 Outpatient MH[facility] MHMG [id number] 15:57:59 23:59:59 06 2019-11-04 2019-11-06 Phone nullFlavo [facility] Family [id number] Memoria 21:04:52 04:59:59 Message r Medicine 05 pari Pereyra 2019-11-04 2019-11-05 Outpatient MHMG MHMG [id number] 16:04:52 23:59:59 05 2019-10-23 2019-10-25 Phone nullFlavo [facility] Family [id number] Memoria 19:10:37 04:59:59 Message r Medicine 04 pari Pereyra 2019-10-23 2019-10-24 Outpatient MHMG MHMG [id number] 14:10:37 23:59:59 04 2019-08-30 2019-08-31 Outpatient nullFlavo [facility] Family 5 [id number] Memoria 20:30:00 05:59:59 r Medicine 07 pari Pereyra 2019-08-30 2019-08-30 Outpatient Nazia, MH[facility] MHMG [id number] 14:30:00 23:59:59 Margaret Gomes 2019-08-30 2019-08-30 Outpatient MHIE MHIE [id number] Memoria 14:30:00 14:30:00 Karis Pereyra 2019-08-06 2019-08-08 Phone nullFlavo [facility] Family [id number] Memoria 19:01:30 05:59:59 Message r Medicine 03 pari Pereyra 2019-08-06 2019-08-07 Outpatient MH[facility] MHMG [id number] 13:01:30 23:59:59 03 2019-06-25 2019-06-27 Phone nullFlavo [facility] Family [id number] Memoria 17:33:26 05:59:59 Message r Medicine 02 pari Pereyra 2019-06-25 2019-06-26 Outpatient MHMG MHMG [id number] 11:33:26 23:59:59 02 2019-06-06 2019-06-07 Between nullFlavo [facility] Family [id number] Memoria 16:52:28 16:52:28 Visit r Medicine 05 pari Pereyra 2019-06-06 2019-06-07 Between nullFlavo [facility] Family [id number] Memoria 16:51:22 16:51:22 Visit r Medicine 04 pari Pereyra 2019-06-06 2019-06-07 Outpatient MHMG MHMG [id number] 10:52:28 10:52:28 05 2019-06-06 2019-06-07 Outpatient MHMG MHMG [id number] 10:51:22 10:51:22 04 2019-06-05 2019-06-06 Outpatient nullFlavo [facility] Family 5 [id number] Memoria 16:30:00 05:59:59 r Medicine 06 pari Pereyra 2019-06-05 2019-06-05 Outpatient Nazia, MH[facility] MHMG [id number] 10:30:00 23:59:59 Margaret Eliseo 2019-06-05 2019-06-05 Outpatient MHIE MHIE [id number] Memoria 10:30:00 10:30:00 06 pari Pereyra 2017-12-19 2017-12-21 Phone nullFlavo [facility] Family [id number] Memoria 15:18:00 04:59:59 Message r Medicine 01 pari Pereyra 2017-12-19 2017-12-20 Outpatient MHMG MHMG [id number] 10:18:00 23:59:59 2017-12-13 2017-12-14 Outpatient nullFlavo [facility] Family 5 [id number] Memoria 18:00:00 04:59:59 r Medicine 05 pari Pereyra 2017-12-13 2017-12-13 Outpatient Ansari, MHMG MHMG [id number] 13:00:00 23:59:59 Dex 05 2017-12-13 2017-12-13 Outpatient MHIE MHIE [id number] Memoria 13:00:00 13:00:00 05 pari Pereyra 2017-04-04 2017-04-04 Outpatient MHIE MHIE [id number] Memoria 13:00:00 13:00:00 04 pari Pereyra 2016-05-23 2016-05-23 Outpatient MHIE MHIE [id number] Memoria 15:00:00 15:00:00 03 pari Pereyra 2015-12-01 2015-12-01 Outpatient MHIE MHIE [id number] Memoria 14:30:00 14:30:00 02 pari Pereyra 2015-10-15 2015-10-15 Outpatient MHIE MHIE [id number] Memoria 08:30:00 08:30:00 01 pari Pereyra 2015-10-14 2015-10-14 Outpatient MHIE MHIE [id number] Memoria 13:30:00 13:30:00 00 pari Pereyra 2015-01-12 2015-01-12 Office nullFlavo [facility] [id number] Memoria 00:00:00 00:00:00 Visit gail ESTEBAN [facility] [id number] pari Stover [place] [facility] Results This patient has no known results.
--- NOTE | 2021-02-04 10:57 | ER ---
Nurse's Notes [facility] Name: Ravindra Holman Age: 30 yrs Sex: Male : 1990 Arrival Date: 02/04/2021 Time: 10:12 Bed 30 Private MD: Diagnosis: Mucous plug Presentation: 02/04 10:29 Chief complaint: Patient states: he and his mother were on their way to MRI when he had ap3 what is described as a "coughing fit" and states he has a mucous plug in his trach. Coronavirus screen: At this time, the client does not indicate any symptoms associated with coronavirus-19. Ebola Screen: No symptoms or risks identified at this time. Initial Sepsis Screen: Does the patient meet any 2 criteria? No. Patient's initial sepsis screen is negative. Does the patient have a suspected source of infection? No. Patient's initial sepsis screen is negative. Risk Assessment: Do you want to hurt yourself or someone else? Patient reports no desire to harm self or others. Onset of symptoms was February 04, 2021. 10:29 Method Of Arrival: Wheelchair ap3 10:29 Acuity: PAM 3 ap3 Triage Assessment: 10:35 General: Appears distressed, Behavior is cooperative, appropriate for age. Respiratory: ap3 Onset: The symptoms/episode began/occurred. Respiratory: Reports cough that is productive, the patient has mild shortness of breath Parent/caregiver reports the patient having this happens about once a day. Historical: - Allergies: 10:31 Sulfa (Sulfonamide Antibiotics); ap3 - Home Meds: 10:37 amlodipine 5 mg tab 1 tab once daily [Active]; benzonatate 100 mg Oral cap 1 cap 3 ap3 times per day [Active]; Brovana 15 mcg/2 mL inhalation nebu 2 mL 2 times per day [Active]; cetirizine 10 mg Oral tab 1 tab once daily [Active]; clonazepam 0.5 mg Oral tab 1 tab 3 times per day [Active]; doxepin 10 mg Oral cap 1 cap nightly [Active]; furosemide 40 mg Oral tab 1 tab 2 times per day [Active]; ipratropium-albuterol 0.5 mg-3 mg(2.5 mg base)/3 mL Inhl nebu every 6 hours [Active]; Lyrica 75 mg Oral [Active]; Melatonin Oral [Active]; methocarbamol 750 mg Oral tab 1 tab every 8 hours [Active]; Miralax 0.125 mg Oral twice a day [Active]; ondansetron HCl 4 mg Oral tab 1 tabs every 6 hours [Active]; pantoprazole 40 mg Oral TbEC 1 tab once daily [Active]; Pulmicort 0.5 mg/2 mL Inhl nbsp 2 mL 2 times per day [Active]; Seroquel Oral [Active]; sertraline 100 mg Oral tab 1 tab once daily [Active]; Singulair 10 mg Oral tab 1 tab once daily [Active]; spironolactone 25 mg Oral tab 1 tab once daily [Active]; Tradjenta 5 mg Oral tab 1 tab once daily [Active]; - Immunization history:: Adult Immunizations up to date, Client reports having NOT received the Covid vaccine. - Social history:: Smoking status: . Screenin:34 Abuse screen: Denies threats or abuse. Nutritional screening: No deficits noted. ap3 Tuberculosis screening: No symptoms or risk factors identified. Fall Risk No fall in past 12 months (0 pts). No secondary diagnosis (0 pts). No IV (0 pts). Ambulatory Aid- Crutches/Cane/Walker (15 pts). Gait- Normal/Bed Rest/Wheelchair (0 pts) Mental Status- Oriented to own ability (0 pts). Total Marshall Fall Scale indicates No Risk (0-24 pts). Assessment: 10:32 General: Appears in no apparent distress. obese, Behavior is calm, cooperative, ap3 appropriate for age. Pain: Denies pain. Neuro: Level of Consciousness is awake, alert, obeys commands, Oriented to person, place, time, situation, Appropriate for age. Cardiovascular: Denies chest pain. Respiratory: Airway via trache Respiratory effort is even, coughing to clear secreations Sputum is thick. GI: No signs and/or symptoms were reported involving the gastrointestinal system. : No signs and/or symptoms were reported regarding the genitourinary system. EENT: No signs and/or symptoms were reported regarding the EENT system. Derm: No signs and/or symptoms reported regarding the dermatologic system. Musculoskeletal:. 10:44 Reassessment: Patient states feeling better. Patient states symptoms have improved. ap3 11:14 Respiratory: Breath sounds are clear bilaterally. ap3 11:14 Cardiovascular: Rhythm is regular. ap3 Vital Signs: 10:29 BP 109 / 92; Pulse 94; Resp 21; Pulse Ox 98% on 4% Trach; ap3 ED Course: 10:12 Patient arrived in ED. as 10:17 Doni Lau MD is Attending Physician. kdr 10:25 Respiratory care therapist to see patient. ap3 10:29 Umm Damian, RN is Primary Nurse. ap3 10:31 Triage completed. ap3 10:34 Arm band placed on right wrist. ap3 10:39 Patient has correct armband on for positive identification. Call light in reach. Adult ap3 w/ patient. Pulse ox on. NIBP on. Door closed. Noise minimized. 11:14 No provider procedures requiring assistance completed. Patient did not have IV access ap3 during this emergency room visit. Administered Medications: No medications were administered Outcome: 10:56 Discharge ordered by . kdr 11:15 Discharged to home via wheelchair, with family. ss 11:15 Condition: good 11:15 Discharge instructions given to patient, family, Instructed on discharge instructions, follow up and referral plans. Demonstrated understanding of instructions, follow-up care. 11:15 Patient left the ED. ss Signatures: Doni Lau MD MD kdr Martinez, Amelia as Smirch, Shelby, RN RN Umm Damian, TENZIN RN ap3
--- NOTE | 2021-02-04 10:57 | EDPHYS ---
Physician Documentation [facility] Name: Ravindra Holman Age: 30 yrs Sex: Male : 1990 Arrival Date: 02/04/2021 Time: 10:12 Bed 30 Private MD: ED Physician Doni Lau HPI: 02/04 10:31 This 30 yrs old Male presents to ER via Unassigned with complaints of kdr Breathing Difficulty. 10:31 The patient has shortness of breath at rest, She presented to the hospital for an MRI kdr of his buttock area for suspected bone infection. During the weight to have the procedure done, the patient started to have some shortness of breath secondary to what was suspected to be mucous plugs. Patient has had these episodes previously and is well-known to the respiratory therapy department. Patient was placed in a room and respiratory therapy was paged to the bedside. At that time, they began a series of treatments involving saline flush to the trach followed by suctioning. The patient has been tolerating this process well.. Onset: The symptoms/episode began/occurred suddenly, just prior to arrival, this morning. Duration: The symptoms are continuous. The patient's shortness of breath is aggravated by coughing, exertion, light activity. Associated signs and symptoms: The patient has no apparent associated signs or symptoms. Severity of symptoms: At their worst the symptoms were mild in the emergency department the symptoms are unchanged. The patient has experienced similar episodes in the past, multiple times. The patient has not recently seen a physician. Historical: - Allergies: 10:31 Sulfa (Sulfonamide Antibiotics); ap3 - Home Meds: 10:37 amlodipine 5 mg tab 1 tab once daily [Active]; benzonatate 100 mg Oral cap 1 cap 3 ap3 times per day [Active]; Brovana 15 mcg/2 mL inhalation nebu 2 mL 2 times per day [Active]; cetirizine 10 mg Oral tab 1 tab once daily [Active]; clonazepam 0.5 mg Oral tab 1 tab 3 times per day [Active]; doxepin 10 mg Oral cap 1 cap nightly [Active]; furosemide 40 mg Oral tab 1 tab 2 times per day [Active]; ipratropium-albuterol 0.5 mg-3 mg(2.5 mg base)/3 mL Inhl nebu every 6 hours [Active]; Lyrica 75 mg Oral [Active]; Melatonin Oral [Active]; methocarbamol 750 mg Oral tab 1 tab every 8 hours [Active]; Miralax 0.125 mg Oral twice a day [Active]; ondansetron HCl 4 mg Oral tab 1 tabs every 6 hours [Active]; pantoprazole 40 mg Oral TbEC 1 tab once daily [Active]; Pulmicort 0.5 mg/2 mL Inhl nbsp 2 mL 2 times per day [Active]; Seroquel Oral [Active]; sertraline 100 mg Oral tab 1 tab once daily [Active]; Singulair 10 mg Oral tab 1 tab once daily [Active]; spironolactone 25 mg Oral tab 1 tab once daily [Active]; Tradjenta 5 mg Oral tab 1 tab once daily [Active]; - Immunization history:: Adult Immunizations up to date, Client reports having NOT received the Covid vaccine. - Social history:: Smoking status: . ROS: 10:31 Constitutional: Negative for fever, chills, and weight loss, Eyes: Negative for injury, kdr pain, redness, and discharge, Neck: Negative for injury, pain, and swelling. There is an indwelling trach which appears to be in good condition. The trach is patent. Cardiovascular: Negative for chest pain, palpitations, and edema, Abdomen/GI: Negative for abdominal pain, nausea, vomiting, diarrhea, and constipation, Back: Negative for injury and pain, : Negative for injury, bleeding, discharge, and swelling, MS/Extremity: Negative for injury and deformity. Exam: 15:26 Constitutional: This is a well developed, well nourished patient who is awake, alert, kdr and in no acute distress. Head/Face: Normocephalic, atraumatic. Cardiovascular: Regular rate and rhythm with a normal S1 and S2. No gallops, murmurs, or rubs. Normal PMI, no JVD. No pulse deficits. Respiratory: Lungs have equal breath sounds bilaterally, clear to auscultation and percussion. No rales, rhonchi or wheezes noted. No increased work of breathing, no retractions or nasal flaring. Vital Signs: 10:29 BP 109 / 92; Pulse 94; Resp 21; Pulse Ox 98% on 4% Trach; ap3 Procedures: 10:31 Performed Trach care. Respiratory therapy was at bedside to flush the trach and suction kdr residual. Patient was able to expectorate copious amounts of mucus. He tolerated the procedure well.. MDM: 10:56 Patient medically screened. kdr 10:58 Data reviewed: vital signs, nurses notes. Counseling: I had a detailed discussion with kdr the patient and/or guardian regarding: the historical points, exam findings, and any diagnostic results supporting the discharge/admit diagnosis, the need for outpatient follow up. ED course: Patient was much improved at time of discharge. They were happy with the care provided and the plan for discharge and follow-up. 15:26 Differential diagnosis: Anxiety Reaction Bronchitis Chronic Obstructive Pulmonary kdr Disease pneumonia. 02/04 10:31 [place] [facility] [place] Consult RT for trach care.; Complete Time: 10:40 kdr Administered Medications: No medications were administered Disposition Summary: 02/04/21 10:56 Discharge Ordered Location: Home kdr Problem: an acute exacerbation kdr Symptoms: are resolved kdr Condition: Stable kdr Diagnosis - Mucous plug kdr Followup: kdr - With: Private Physician - When: 2 - 3 days - Reason: If symptoms return, Further diagnostic work-up, Recheck today's complaints, Continuance of care, Re-evaluation by your physician Discharge Instructions: - Discharge Summary Sheet kdr - Tracheostomy and Tracheostomy Tube Safety and Care, Adult kdr Forms: - Medication Reconciliation Form kdr - Thank You Letter kdr Signatures: Doni Lau MD MD kdr Umm Damian RN RN ap3
[2021-02-04 11:21] VITALS: BP 109/92; O2SAT 98
== END 2021-02-04 11:15 | disposition home or self-care (01) ==
LOC: ER 10:11
DX: T17.990A Other foreign object in respiratory tract, part unspecified in causing asphyxiation, initial encounter (principal); Z88.2 Allergy status to sulfonamides
CPT/HCPCS: 99282